=== PATIENT | female | born 1980 | race African-American/Black ===

== ENCOUNTER 2016-10-29 05:49 | Inpatient (IN) | payer BC ==
[2016-10-29] VITALS (25 sets, daily range): BP systolic 125–180; BP diastolic 67–124; PULSE 64–119; RESP 16–22; TEMP 97.4–98.9; O2SAT 99–100
[~2016-10-29] VITALS: Ht 152.4 cm; Wt 57.5 kg
[~2016-10-29 05:49] MED LIST: CIPR500T4 PO; GLUC1000 PO; LISI-360 PO; PROT40TA PO; Z.0.BCPILL PO
[2016-10-29] MEDS ORDERED: TRI-TAB (06:04)
[2016-10-29] MEDS ORDERED: METF500T PO (06:04)
[2016-10-29] MEDS ORDERED: LISI10TA3 PO (06:04)
[2016-10-29] MEDS ORDERED: ONDANSETRON HCL 4 MG/2 ML VIAL ONE ×2 (06:06→17:45)
[2016-10-29] MEDS ORDERED: LORazepam 2 MG/ML VIAL ONE (06:09)
[2016-10-29] MEDS ORDERED: MORPHINE SULFATE 8 MG/ML INJ ONE ×3 (06:12→06:44)
[2016-10-29] MEDS ORDERED: ASPIRIN 325 MG TAB ONE (06:12)
[2016-10-29] MEDS ORDERED: ONDANSETRON HCL 4 MG/2 ML VIAL IV ONE (06:15)
[2016-10-29] MEDS ORDERED: LORazepam 2 MG/ML VIAL IV PUSH ONE (06:15)
[2016-10-29] MEDS ORDERED: SODIUM CHLOR 0.9% 1000 ML INJ 1,000 ML IV ONE ×2 (06:15)
[2016-10-29] MEDS ORDERED: SODIUM CHLORIDE 0.9% FLUSH 10 ML FLUSH IVF PRN (06:15)
[2016-10-29] MEDS ORDERED: HEPARIN SODIUM - IV 10,000 UNITS/10 ML VIAL IV STA (06:16)
[2016-10-29] MEDS ORDERED: ASPIRIN 81 MG CHEW TAB ONE (06:18)
[2016-10-29] MEDS ORDERED: HEPARIN SODIUM - IV 10,000 UNITS/10 ML VIAL ONE ×2 (06:18→06:40)
[2016-10-29 06:23] LABS: I-STAT POTASSIUM 4.1 MMOL/L (3.5-4.9)
[2016-10-29 06:24] LABS: BASOPHIL # 0.1 TH/MM3 (0-0.2); BASOPHIL % 0.6 % (0.0-2.0); EOSINOPHIL % 0.1 % (0.0-4.0); HEMATOCRIT 42.3 % (35.0-46.0); HEMO FLAGS DIFF FINAL; LYMPH % 14.4 % (9.0-44.0); LYMPHOCYTE # 2.2 TH/MM3 (1.0-4.8); MEAN CORPUSCULAR HEMOGLOBIN 28.2 PG (27.0-34.0); MEAN CORPUSCULAR HGB CONC 33.6 % (32.0-36.0); MONO % 1.9 % (0.0-8.0); PLATELET COUNT 401 TH/MM3 (150-450); RED BLOOD COUNT 5.04 MIL/MM3 (4.00-5.30); RED CELL DISTRIBUTION WIDTH 12.8 % (11.6-17.2); WHITE BLOOD COUNT 15.7 TH/MM3 (4.0-11.0)
[2016-10-29] MEDS ORDERED: IOHEXOL 350 MG/ML 50 ML BTL (for Cath Lab) OTHER ONE (06:30)
[2016-10-29] MEDS ORDERED: IOHEXOL 350 MG/ML 100 ML BTL (for Cath Lab) OTHER ONE (06:30)
[2016-10-29] MEDS ORDERED: NITROGLYCERIN-DEXTROSE INJ 250 ML IV SCH (06:30)
--- NOTE | 2016-10-29 06:38 | RADRPT ---
EXAM DATE/TIME: 10/29/2016 06:08 [place] COMPARISON: No previous studies available for comparison. INDICATIONS : Stemi alert MEDICAL HISTORY : Hypertension. Diabetes SURGICAL HISTORY : None. ENCOUNTER: Initial ACUITY: 1 day PAIN SCORE: 10/10 LOCATION: Bilateral chest FINDINGS: The lungs are clear without infiltrate, nodule, or mass. There is no appreciable pleural effusion fo r technique. Heart and mediastinum are unremarkable. CONCLUSION: No acute cardiopulmonary disease. Kasey Shaver MD on October 29, 2016 at 6:36 Board Certified Radiologist. This report was verified electronically.
[2016-10-29] MEDS ORDERED: MIDAZOLAM HCL 2 MG/2 ML VIAL ONE (06:40)
[2016-10-29] MEDS ORDERED: HEPARIN-NS/PF INJ 500 ML ONE (06:40)
[2016-10-29] MEDS ORDERED: NITROGLYCERIN INJ 5 ML ONE (06:40)
[2016-10-29 06:54] LABS: ANION GAP 11 MEQ/L (5-15); AST (GOT) 51 U/L (15-37); BICARBONATE 24.6 MEQ/L (21.0-32.0); BLOOD UREA NITROGEN 11 MG/DL (7-18); CHLORIDE 98 MEQ/L (98-107); GLOMERULAR FILTRATION RATE 94 ML/MIN (>89); MAGNESIUM 1.6 MG/DL (1.5-2.5); SODIUM (NA) 134 MEQ/L (136-145)
[2016-10-29 06:55] LABS: ALT (GPT) 58 U/L (10-53)
[2016-10-29 06:59] LABS: ALKALINE PHOSPHATASE 89 U/L (45-117); TOTAL BILIRUBIN ADULT 0.4 MG/DL (0.2-1.0)
--- NOTE | 2016-10-29 07:16 | PD ---
HPI Chief Complaint: Chest Pain Time Seen by Provider: 06:01 Travel History International Travel<30 days: No Contact w/Intl Traveler<30days: No Traveled to known affect area: No History of Present Illness HPI So 36 year-old woman, history of diabetes and hypertension, presents to the emergency department complaining of left-sided chest pain, rating her left arm and her abdomen starting about 1 AM. Woke her from sleep. Social with nausea and vomiting. Patient states the pain is severe, she's never had it before. She otherwise has been feeling generally well and healthy prior to the onset of these symptoms. She felt well before she went to bed last night. History Past Medical History Narrative Medical Diabetes Hypertension Tetanus Vaccination: Unknown Influenza Vaccination: No LMP: 09/27/16 : 1 Para: 1 Social History Alcohol Use: No Tobacco Use: No Allergies-Medications (Allergen,Severity, Reaction): Coded Allergies: No Known Allergies (Verified , 10/29/16) Reported Meds & Prescriptions Reported Meds & Active Scripts Active Reported Tri-Sprintec (Norgestimate-Ethinyl Estradiol) 0.18/0.215/0.25 Mg-35 Mcg Tab Lisinopril 10 Mg Tab 10 Mg PO DAILY Metformin (Metformin HCl) 500 Mg Tab 500 Mg PO BIDPC With meals Review of Systems Except as stated in HPI: all other systems reviewed are Neg Physical Exam Narrative GENERAL: 36 year-old woman, appears uncomfortable, diaphoretic. SKIN: Diaphoretic. No rash. HEAD: Atraumatic. Normocephalic. EYES: Pupils equal and round. No scleral icterus. No injection or drainage. ENT: No nasal bleeding or discharge. Mucous membranes pink and moist. NECK: Trachea midline. No JVD. CARDIOVASCULAR: Regular rate and rhythm. No murmur appreciated. RESPIRATORY: No accessory muscle use. Clear to auscultation. Breath sounds equal bilaterally. GASTROINTESTINAL: Abdomen soft, non-tender, nondistended. Hepatic and splenic margins not palpable. MUSCULOSKELETAL: Abdomen flat and soft. No significant tenderness. No guarding. NEUROLOGICAL: Awake and alert. No obvious cranial nerve deficits. Motor grossly within normal limits. Normal speech. PSYCHIATRIC: Anxious and tearful. Data Data Last Documented VS Vital Signs Date Time Temp Pulse Resp B/P Pulse Ox O2 Delivery O2 Flow Rate FiO2 10/29/16 06:25 99 22 164/108 100 Nasal Cannula 2 10/29/16 05:53 97.4 Orders Ondansetron Inj (Zofran Inj) (10/29/16 06:06) Electrocardiogram (10/29/16 06:08) Complete Blood Count With Diff (10/29/16 06:08) Comprehensive Metabolic Panel (10/29/16 06:08) D-Dimer (10/29/16 06:08) Magnesium (Mg) (10/29/16 06:08) Prothrombin Time / Inr (Pt) (10/29/16 06:08) Act Partial Throm Time (Ptt) (10/29/16 06:08) Troponin I (10/29/16 06:08) Lipase (10/29/16 06:08) Chest, Single Ap (10/29/16 06:08) Ecg Monitoring (10/29/16 06:08) Bilateral Bp Monitoring (10/29/16 06:08) Iv Access Insert/Monitor (10/29/16 06:08) Oximetry (10/29/16 06:08) Oxygen Administration (10/29/16 06:08) Sodium Chloride 0.9% Flush (Ns Flush) (10/29/16 06:15) Sodium Chlor 0.9% 1000 Ml Inj (Ns 1000 M (10/29/16 06:15) Sodium Chlor 0.9% 1000 Ml Inj (Ns 1000 M (10/29/16 06:15) Ondansetron Inj (Zofran Inj) (10/29/16 06:15) Lorazepam Inj (Ativan Inj) (10/29/16 06:15) Lorazepam Inj (Ativan Inj) (10/29/16 06:09) I-Stat Profile (10/29/16 06:11) I-Stat Creatinine (10/29/16 06:11) Aspirin (Aspirin) (10/29/16 06:12) Morphine Inj (Morphine Inj) (10/29/16 06:12) Aspirin Chew (Aspirin Chew) (10/29/16 06:18) Heparin Inj (Heparin Inj) (10/29/16 06:18) Heparin Inj (Heparin Inj) (10/29/16 06:16) Nitroglycerin-Dextrose Inj (Nitroglyceri (10/29/16 06:30) Cardiac Catheterization (10/29/16 ) Heparin-Ns/Pf Inj (Heparin-Ns/Pf Inj) (10/29/16 06:40) Midazolam Inj (Versed Inj) (10/29/16 06:40) Fentanyl Inj (Fentanyl Inj) (10/29/16 06:40) Heparin Inj (Heparin Inj) (10/29/16 06:40) Nitroglycerin Inj (Nitroglycerin Inj) (10/29/16 06:40) Morphine Inj (Morphine Inj) (10/29/16 06:44) Morphine Inj (Morphine Inj) (10/29/16 06:44) Labs Laboratory Tests Test 10/29/16 06:05 White Blood Count 15.7 TH/MM3 Red Blood Count 5.04 MIL/MM3 Hemoglobin 14.2 GM/DL Bedside Hemoglobin 15.3 G/DL Hematocrit 42.3 % Bedside Hematocrit 45.0 % Mean Corpuscular Volume 84.0 FL Mean Corpuscular Hemoglobin 28.2 PG Mean Corpuscular Hemoglobin 33.6 % Concent Red Cell Distribution Width 12.8 % Platelet Count 401 TH/MM3 Mean Platelet Volume 8.5 FL Neutrophils (%) (Auto) 83.0 % Lymphocytes (%) (Auto) 14.4 % Monocytes (%) (Auto) 1.9 % Eosinophils (%) (Auto) 0.1 % Basophils (%) (Auto) 0.6 % Neutrophils # (Auto) 13.0 TH/MM3 Lymphocytes # (Auto) 2.2 TH/MM3 Monocytes # (Auto) 0.3 TH/MM3 Eosinophils # (Auto) 0.0 TH/MM3 Basophils # (Auto) 0.1 TH/MM3 CBC Comment DIFF FINAL Differential Comment Bedside Sodium 136 MMOL/L Sodium Level 134 MEQ/L Bedside Potassium 4.1 MMOL/L Potassium Level 4.0 MEQ/L Bedside Chloride 100 MMOL/L Chloride Level 98 MEQ/L Carbon Dioxide Level 24.6 MEQ/L Anion Gap 11 MEQ/L Bedside Blood Urea Nitrogen 12 MG/DL Blood Urea Nitrogen 11 MG/DL Creatinine 0.84 MG/DL Bedside Creatinine 0.5 MG/DL Estimat Glomerular Filtration 94 ML/MIN Rate Bedside Glucose 421 MG/DL Random Glucose 392 MG/DL Calcium Level 9.3 MG/DL Magnesium Level 1.6 MG/DL Total Bilirubin 0.4 MG/DL Aspartate Amino Transf 51 U/L (AST/SGOT) Alanine Aminotransferase 58 U/L (ALT/SGPT) Alkaline Phosphatase 89 U/L Troponin I LESS THAN 0.02 NG/ML Total Protein 7.8 GM/DL Albumin 3.3 GM/DL Lipase 94 U/L [facility] Medical Decision Making Medical Screen Exam Complete: Yes Emergency Medical Condition: Yes Interpretation(s) My review of EKG: Large inferolateral ST elevation AR Differential Diagnosis STEMI, dissection, pericarditis, other Narrative Course Medical decision making Is a 36 year-old woman, ill-appearing, presents with abdominal pain, chest pain , left arm pain. EKG shows obvious inferolateral AR. Etiology is not clear. She has risk factors including hypertension diabetes was still very young. She could have some sort of thrombophilia, dissection, or other etiology. Spoke with Dr. Ray, on-call for cardiology. Patient was taken emergently to the [facility]. Critical Care Narrative Aggregate critical care time was 35 minutes. Time to perform other separately billable procedures was not included in the critical care time. My time did not include minutes spent treating any other patients simultaneously or on activities that did not directly contribute to the patient's treatment. The services I provided to this patient were to treat and/or prevent clinically significant deterioration that could result in: , disability, unrecognized AR, increased morbidity. I provided critical care services requiring my management, as noted below: Chart data review, documentation time, medication orders and management, vital sign assessments/reviewing monitor data, ordering and reviewing lab tests, ordering and interpreting/reviewing x-rays and diagnostic studies, care of the patient and discussion of the patient with the admitting physicians. Diagnosis Primary Impression: STEMI (ST elevation myocardial infarction) Cezar Camp MD Oct 29, 2016 07:15
[2016-10-29] MEDS ORDERED: TICAGRELOR 90 MG TAB PO ONE (07:25)
[2016-10-29] MEDS ORDERED: TIROFIBAN BOLUS INJ 100 ML IV ONE (07:28)
[2016-10-29 07:40] LABS: APTT (PATIENT) 20.8 SEC (24.3-30.1); INTERNATIONAL NORMALIZED RATIO 0.9 RATIO
--- NOTE | 2016-10-29 07:46 | CATHPROC ---
[employer] HIS Report Study Information Study Number Admission Scheduled Start Study Start [id number] Oct 29 2016 5:49AM 10/29/2016 Oct 29 2016 6:36AM [facility] Cardiac Catheterization Admit Source Facility Department Emergency department [facility] Physician and Clinical Staff Initial Juanita Lockhart Tunnel Mucker Scarlett Welsh,JONI Tunnel Mucker Tari Prabhakar RN Scrub Julio Cesar Aguirre RCIS(BS) Procedures Performed Procedure Location (Site) Vessel Name Angiogram LV LV Ventricle Coronary Angiograms LCA Left Coronary Coronary Angiograms RCA Right Coronary L Heart Cath PTCA RCA Dist Right Coronary Stent RCA Dist Right Coronary Wire insertion Fem Art (right) Femoral Art Equipment Time Press Technician Description Size Mfg Part Number Used/Scraped CATHETER, BIFURCATED 07:12 ANGIO-DYNAMICS FR 5 [id number] Used INFUSION LXSN TRANSDUCER, TRFlypeepsAVE [id number] 06:46 SCANLON JEWELL * Used W/STOCKCOCK *[id number] *[id number] *[id number] [id number] *[id number] [id number] *[id number] *[id number] 07:29 DAIG/[facility]. MARIANNE MEDICAL ANGIOSEAL, FR6 VIP FR 6 Used *[id number] 06:46 MEDLINE IND[employer] PACK, CCL CUSTOM * Used *[id number] 06:46 [employer] PACER PEN, SKIN DUAL W/ RULER * Used *[id number] 07:13 MEDTRONIC BALLOON, 2.5 X 10MM EUPHORA 10MM Used *[id number] EXPORTAP 07:03 [employer] CATHETER, EXPORT ASPIRATON Used *[id number] 07:18 MEDTRONIC STENT, 3.0 12 INTEGRITY 3.0 12 Used *[id number] 07:13 [employer]IC MEDICAL 30 RAMON INDEFLATOR Used *[id number] 07:04 [employer] MEDICAL SHEATH, FR6.5 PRELUDE 11CM FR 6.5 038ACT Used *[id number] 06:46 [employer] WIRE, 3MMJ .035 180CM 180CM Used *[id number] PROBE COVER, STERILE [id number] 06:46 [employer] * Used ULTRASOUND W/ GEL *[id number] 06:46 NAMIC MANIFOLD, 4 PORT * Used *[id number] 06:48 NAMIC TUBING, HIGH PRESSURE 48" 48" Used *[id number] 06:46 NAMIC TUBING, HIGH PRESSURE 48" 48" Used *[id number] 06:46 [employer]COMED OMNIPAQUE, 350 MG, 150ML 150ML [id number] Used 07:23 NYCOMED OMNIPAQUE, 350 MG, 50ML 50ML [id number] Used [id number] 06:46 RAMIREZ MEDICAL BLANKET,WARM AIR CCL * Used *[id number] 06:46 TERUMO MEDICAL SHEATH, FR5 TERUMO (10CM) FR 5 [id number] Used Equipment Model, Serial, Lot Number and Expiration Data Description Model Number Serial Number Lot Number Expiration Date STENT, 3.0 12 INTEGRITY [id number] 06-23-2017 History: Allergies Allergy Reaction No Known Allergies History: Risk Factors Family History of Hypertension Dyslipidemia Previous AK Previous Heart Failure Premature CAD No No No No No Prior Valve Prior PCI Prior CABG Surgery No No No Cerebrovascular Peripheral Artery Chronic Lung On Dialysis Diabetes Disease Disease Disease No No No No No History: Symptoms/Diagnosis Selection Items Angina-unstable History: Stress Tests Stress or Imaging Studies Performed No History: Other Current Smoker No Labs Hgb (g/dl) Hct (%) RBC (MIL/MM3) WBC (l/cumm) Platelets (thousands) 12.00-18.00 37.00-55.00 4.80-6.20 4.80-10.80 140.00-450.00 14.2 42.3 5 15.7 401 Glucose (mg/dl) BUN (mg/dl) Creatinine (mg/dl) BUN:Creatinine (1:x) 60.00-110.00 8.00-20.00 0.10-9.00 10.00-20.00 421 11 0.8 13.8 Na (meq/l) K (meq/l) Cl (meq/l) CO2 (mmol/L) Ca (mg/dl) 138.00-146.00 3.80-5.10 101.00-111.00 23.00-30.00 9.00-10.50 136 4 98 24.6 9.3 Medication Medication Total Dose (Bolus/Oral) Medication Total Dosage/Unit 1% XYLOCAINE 20 mL AGGRASTAT BOLUS 28 meq/kg BRILINTA 180 mg FENTANYL 100 mcg HEPARIN 6400 units MORPHINE 4 mg NTG (IC) 200 mcg VERSED 2 mg Medications (Bolus/Oral) Medication Time Given Dosage/Unit Administered By Reason HEPARIN 10/29/2016 6:30:58 AM 3400 units Patient arrived on 3400 units HEPARIN via Peripheral IV. given in ER MORPHINE 10/29/2016 6:44:35 AM 4 mg Juanita So Patient arrived on 4 mg MORPHINE given by Juanita So in Right Antecubital via Peripheral IV. Ord ered by Juanita So. VERSED 10/29/2016 6:55:46 AM 1 mg Tari Prabhakar 1 mg VERSED given in lab by Tari Prabhakar RN in Right Antecubital via Peripheral IV. FENTANYL 10/29/2016 6:56:47 AM 50 mcg Tari Prabhakar 50 mcg FENTANYL given in lab by Tari Prabhakar RN in Right Antecubital via Peripheral IV. Ordered by Juanita So. 1% XYLOCAINE 10/29/2016 6:57:09 AM 20 mL Tari Prabhakar Patient arrived on 20 mL 1% XYLOCAINE given by Tari Prabhakar RN via Subcutaneous. Ordered by Juanita Jackson. HEPARIN 10/29/2016 7:01:42 AM 3000 units Tari Prabhakar 3000 units HEPARIN given in lab by Tari Prabhakar RN in Right Antecubital via Peripheral IV. NTG (IC) 10/29/2016 7:14:56 AM 200 mcg Julio Cesar Aguirre 200 mcg NTG (IC) given in lab by Julio Cesar Aguirre RCIS(BS) in Right Groin via Intra-coronary. VERSED 10/29/2016 7:25:34 AM 1 mg Tari Prabhakar 1 mg VERSED given in lab by Tari Prabhakar RN in Right Antecubital via Peripheral IV. FENTANYL 10/29/2016 7:26:00 AM 50 mcg Tari Prabhakar 50 mcg FENTANYL given in lab by Tari Prabhakar RN in Right Antecubital via Peripheral IV. AGGRASTAT BOLUS 10/29/2016 7:29:50 AM 28 meq/kg Tari Prabhakar 28 meq/kg AGGRASTAT BOLUS given in lab by Tari Prabhakar RN in Right Antecubital via Peripheral IV. Amount given = 1576.4 meq. Ordered by Juanita So. BRILINTA 10/29/2016 7:43:41 AM 180 mg Tari Prabhakar 180 mg BRILINTA given in lab by Tari Prabhakar RN via Oral. Ordered by Juanita So. Medication (Drip) Medication Time Given Dosage/Unit Concentration/Unit Diluent (ml) Solution INSULIN (HUMAN) 10/29/2016 6:55:48 AM 10 units Patient arrived on 10 units INSULIN (HUMAN) given by Scarlett Welsh RN in Right Hand via Periphera l IV. Ordered by Juanita So. IV Bolus 10/29/2016 7:00:17 AM 500 mL (Bolus) 1000 NaCl .9 500 mL (Bolus) IV Bolus given in lab by Scarlett Welsh RN in Right Antecubital via Peripheral IV. Using NaCl .9. IV Solutions 10/29/2016 6:39:11 AM 0 mL (IV) 500 NaCl .9 Patient arrived on IV Solutions given by Juanita So in Right Antecubital via Peripheral IV. Pump /Drip Flow = 20 ml/hr using NaCl .9. Ordered by Juanita So. NITROGLYCERIN DRIP 10/29/2016 6:38:38 AM 40 mcg/min 50 mg 250 D5W Patient arrived on 40 mcg/min NITROGLYCERIN DRIP given by Juanita So in Left Antecubital via Per ipheral IV. Pump/Drip Flow = 12 ml/hr using D5W with a concentration of 50 mg in 250 ml. Ordered by Juanita So. NITROGLYCERIN DRIP 10/29/2016 6:41:45 AM 80 mcg/min 50 mg 250 D5W Patient arrived on 80 mcg/min NITROGLYCERIN DRIP given by Juanita So in Left Antecubital via Per ipheral IV. Pump/Drip Flow = 24 ml/hr using D5W with a concentration of 50 mg in 250 ml. Ordered by Juanita So. Initial Case Assessment Cardiovascular HR Rhythm NIBP Chest Pain 100 stemi 181/123 9 Edema Present Skin color Skin None Normal Warm Dry Circulatory - Right Pulses Dorsalis Pedis Femoral 3 3 Scale (0,1,2,3,4,d) Circulatory - Left Pulses Dorsalis Pedis Femoral 3 3 Scale (0,1,2,3,4,d) Neurological State Oriented to time-place- Alert Moves all extremities person Respiration - General Respiration Rate SpO2 (%) O2 (lpm) (B/min) 18 100 2 Final Case Assessment Cardiovascular HR Rhythm NIBP Chest Pain 118 stemi 154/105 9 Edema Present Skin color Skin None Normal Warm Dry Circulatory - Right Pulses Dorsalis Pedis Femoral 3 3 Scale (0,1,2,3,4,d) Circulatory - Left Pulses Dorsalis Pedis Femoral 3 3 Scale (0,1,2,3,4,d) Neurological State Oriented to time-place- Alert Moves all extremities person Respiration - General Respiration Rate SpO2 (%) O2 (lpm) (B/min) 13 100 2 Chronological Log Time Study Chronological Log 6:30:53 Patient arrived via Bed. 6:30:58 Patient arrived on 3400 units HEPARIN via Peripheral IV. given in ER Vitals capture started with the following parameters, Patient=Adult, Interval=5 min, Initial Pr tzyatw=978 mmHg, 6:35:46 Deflation Rate=5 mmHg 6:35:58 Patient Name, D.O.B, / Armband Verified By R.N. 6:36:00 Consent signed by the physician and the patient and verified by the [facility] staff. 6:36:01 Pre-op and post- op instructions given; patient acknowledges understanding of instructions. 6:36:45 IX=163 bpm, IMNY=752/123 mmhg, XbA7=980.0 %, Resp=22 B/min, Grove=2 6:37:26 Verbal Stimulation=2 Physical Stimulation=2 Airway=2 Respiration=2 TOTAL=8. (0=absent, 1=li mited, 2=present) 6:37:38 Presedation assessment performed by [facility] RN. 6:38:22 A # 20 IV was noted in the Antecubital (left). Grade = 0 6:38:31 A # 20 IV was noted in the Antecubital (right). Grade = 0 Patient arrived on 40 mcg/min NITROGLYCERIN DRIP given by Juanita So in Left Antecubital v ia Peripheral IV. 6:38:38 Pump/Drip Flow = 12 ml/hr using D5W with a concentration of 50 mg in 250 ml. Ordered by Juanita So. Patient arrived on IV Solutions given by Juanita So in Right Antecubital via Peripheral IV . Pump/Drip Flow = 20 6:39:11 ml/hr using NaCl .9. Ordered by Juanita So. 6:39:23 History and physical on the chart or being dictated. Assessment: Initial Case, ZI=626 BPM, Rhythm=stemi, SIQE=511/123 mmhg, Chest Pain=9, Edema=None, Color=Normal, Skin = Warm, Dry Right Pulses: Hola Ped=3, Femoral=3 6:39:26 Left Pulses: Hola Ped=3, Femoral=3 Neurological: State=Alert, Ox3, FERNANDES Respiration: Resp=18 B/min, FfD7=537 %, O2=2 lpm 6:39:58 Bilateral groins prepped with 2% chlorhexidine, and with a 3 min. waiting time. 6:41:09 JB=192 bpm, DAZZ=317/111 mmhg, ErW2=704.0 %, Resp=20 B/min, Grove=2 Patient arrived on 80 mcg/min NITROGLYCERIN DRIP given by Juanita So in Left Antecubital vi a Peripheral IV. 6:41:45 Pump/Drip Flow = 24 ml/hr using D5W with a concentration of 50 mg in 250 ml. Ordered by Juanita So. 6:44:24 Reference ECG taken Patient arrived on 4 mg MORPHINE given by Juanita So in Right Antecubital via Peripheral IV . Ordered by 6:44:35 Juanita So. 6:44:47 Pressure channel 1 zeroed. 6:46:08 VU=314 bpm, KMOM=845/106 mmhg, EsO8=991.0 %, Resp=22 B/min, Grove=2 6:47:16 MD arrived. 6:51:07 ZH=239 bpm, SBXI=801/96 mmhg, OaE4=750.0 %, Resp=19 B/min, Grove=2 6:55:04 275 blood glucose 6:55:20 BMG 375 6:55:46 1 mg VERSED given in lab by Tari Prabhakar, JONI in Right Antecubital via Peripheral IV. Patient arrived on 10 units INSULIN (HUMAN) given by Scarlett Welsh RN in Right Hand via Kayla pheral IV. Ordered 6:55:48 by Juanita So. 6:56:04 DV=839 bpm, UWWJ=269/106 mmhg, LoH7=776.0 %, Resp=26 B/min, Pain=6, Jr=10, Grove=2 Time Out. Correct patient, correct procedure,correct physician, ,power injector loaded or not lo aded with contrast with 6:56:28 surgical team present. Time Out Concurred by MD, individual staff and CLOTHING BUSHELER in procedure 6:56:31 Case Start 50 mcg FENTANYL given in lab by Tari Prabhakar RN in Right Antecubital via Peripheral IV. Order ed by Judah, 6:56:47 Juanita. 6:57:09 Patient arrived on 20 mL 1% XYLOCAINE given by Tari Prabhakar RN via Subcutaneous. Ordered by Juanita So. 6:57:11 Access site was Right Femoral Artery. 6:57:50 Activated Clotting Time Drawn A AR MOD INFINITI CATHETER FR 5 was advanced over a wire. OMNIPAQUE, 350 MG, 150ML 150ML was use d for 6:58:57 injections. Recorded Pressure: LV, ZN=102, Condition=Condition 1 6:59:18 (Left Ventricle) LV 130/10/11 7:00:05 The RCA was injected and visualized at various angles. OMNIPAQUE, 350 MG, 150ML 150ML used. 7:00:17 500 mL (Bolus) IV Bolus given in lab by Scarlett Welsh RN in Right Antecubital via Periph eral IV. Using NaCl .9. 7:00:35 Catheter was removed 7:01:09 QC=997 bpm, SQIO=279/88 mmhg, EhH5=421.0 %, Resp=14 B/min, Pain=6, Jr=10, Grove=2 A JL 4.0 INFINITI CATHETER FR 5 was advanced over a wire. OMNIPAQUE, 350 MG, 150ML 150ML was use d for 7::14 injections. 7:01:25 ACT (Normal Range 90-180) = 186 7:01:42 3000 units HEPARIN given in lab by Tari Prabhakar, JONI in Right Antecubital via Peripheral IV . 7:02:29 The LCA was injected and visualized at various angles. OMNIPAQUE, 350 MG, 150ML 150ML used. 7:03:14 Catheter was removed A SHEATH, FR6.5 PRELUDE 11CM FR 6.5 was exchanged in the Fem Art (right). This was necessary in order for 7:03:37 catheter support. 7:04:42 A AR 1 GUIDE CATHETER FR 6 was advanced over a wire. OMNIPAQUE, 350 MG, 150ML 150ML was used for injections. Recorded Pressure: Ao, PY=141, Condition=Condition 1 7:04:51 (Aorta) Ao 124/90/107 7:06:04 TQ=852 bpm, HJGA=985/90 mmhg, WiG2=548.0 %, Resp=14 B/min 7:07:03 A WIRE, ATW MARKER 195CM 195CM was inserted via Fem Art (right). 7:08:23 Interventional wire has crossed the lesion 7:08:32 Aspiration catheter inserted 7:08:33 Aspiration in progress. REPERFUSION 7:10:14 ASPIRATION Catheter was removed 7:10:32 Activated Clotting Time Drawn 7:11:05 FK=433 bpm, RCQX=743/81 mmhg, SpO2=99.0 %, Resp=15 B/min, Pain=6, Jr=10, Grove=2 7:12:49 A BALLOON, 2.5 X 10MM EUPHORA 10MM was inserted over WIRE, ATW MARKER 195CM 195CM via the RC A Dist. A BALLOON, 2.5 X 10MM EUPHORA 10MM over a WIRE, ATW MARKER 195CM 195CM in the RCA Dist was infla robert using 7:13:04 a 30 RAMON INDEFLATOR at 14 ramon for 35 sec. 7:14:31 Balloon Removed. 7:14:56 200 mcg NTG (IC) given in lab by Julio Cesar Aguirre RCIS(BARB) in Right Groin via Intra-coronary. 7:15:35 ACT (Normal Range 90-180) = 276 7:16:04 EL=552 bpm, NWIX=176/69 mmhg, AnV7=448.0 %, Resp=19 B/min, Pain=6, Jr=10, Grove=2 An STENT, 3.0 12 INTEGRITY 3.0 12 Bare Metal Stent was inserted through a AR 1 GUIDE CATHETER FR 6 over a 7:18:18 WIRE, ATW MARKER 195CM 195CM. A STENT, 3.0 12 INTEGRITY 3.0 12 was deployed using a 30 RAMON INDEFLATOR at 10 atmospheres for 25 seconds in 7:18:55 the RCA Dist. 7:20:15 Re-inflated the stent balloon in the RCA Dist to 14 RAMON for 20 seconds. 7:20:30 Delivery device removed 7:21:03 ZV=269 bpm, ZAVC=648/80 mmhg, QjQ5=265.0 %, Resp=16 B/min, Pain=6, Jr=10, Grove=2 7:21:50 Wire removed 7:21:53 Catheter was removed A JL 4.0 INFINITI CATHETER FR 5 was advanced over a wire. OMNIPAQUE, 350 MG, 150ML 150ML was use d for 7:22:32 injections. Recorded Pressure: LV, WL=524, Condition=Condition 1 7:23:28 (Left Ventricle) LV 145/7/17 7:24:39 The LV was injected at 10 cc/sec for a total of 30. OMNIPAQUE, 350 MG, 50ML 50ML used. Recorded Pressure: LV, Ao, GQ=613, Condition=Condition 1 7:25:23 (Left Ventricle) LV 139/5/5, (Aorta) Ao 133/76/110 7:25:34 1 mg VERSED given in lab by Tari Prabhakar RN in Right Antecubital via Peripheral IV. 7:26:00 50 mcg FENTANYL given in lab by Tari Prabhakar RN in Right Antecubital via Peripheral IV. 7:26:02 XK=930 bpm, OOYE=312/96 mmhg, YkY4=236.0 %, Resp=17 B/min, Pain=6, Jr=10, Grove=2 7:26:54 An injection in the Fem Art (right) was made through the SHEATH, FR6.5 PRELUDE 11CM FR 6.5. 7:28:10 Catheter(s) removed without difficulty 7:28:26 ANGIOSEAL, FR6 VIP FR 6 placement in the Fem Art (right) 7:28:41 Case End 28 meq/kg AGGRASTAT BOLUS given in lab by Tari Prabhakar, JONI in Right Antecubital via Peripheral IV. Amount given 7:29:50 = 1576.4 meq. Ordered by Juanita So. 7:31:00 Bedside Report will be given. 7:31:05 A Left Heart Cath was performed. 7:31:08 KO=596 bpm, JLPQ=147/98 mmhg, ZhU0=292.0 %, Resp=13 B/min, Pain=6, Jr=10, Grove=2 7:31:10 No case complications noted. 7:31:15 Sterile dressing applied to site 7:36:11 KV=781 bpm, IUBN=046/105 mmhg, AeJ0=775.0 %, Resp=13 B/min, Pain=6, Jr=10, Grove=2 Assessment: Final Case, LC=405 BPM, Rhythm=stemi, GZJH=302/105 mmhg, Chest Pain=9, Edema=None, Color=Normal, Skin = Warm, Dry Right Pulses: Hola Ped=3, Femoral=3 7:38:02 Left Pulses: Hola Ped=3, Femoral=3 Neurological: State=Alert, Ox3, FERNANDES Respiration: Resp=13 B/min, EjI7=473 %, O2=2 lpm 7:38:23 Vitals capture stopped. 7:43:41 180 mg BRILINTA given in lab by Tari Prabhakar, JONI via Oral. Ordered by Juanita So. 7:44:40 Patient moved to [facility] End Study - Contrast Media Used In Study Contrast Total Opened (mL) Total Used (mL) Total Wasted (mL) Omnipaque 130 130 0 End Study - Maximum Contrast Load Max Contrast Load (mL) 352.0 End Study - Radiation Exposure Fluoro Time (minutes) 6.3 End Study - Patient Disposition Complications Transferred To Interventional Outcome No Telemetry Bed successful
[2016-10-29] MEDS ORDERED: ACETAMINOPHEN 325 MG TAB PO PRN (08:00)
[2016-10-29] MEDS ORDERED: TEMAZEPAM 15 MG CAP PO PRN (08:00)
[2016-10-29] MEDS ORDERED: SODIUM CHLOR 0.9% 1000 ML INJ 1,000 ML IV SCH (08:00)
[2016-10-29] MEDS ORDERED: MISC INFORMATION XX ONE (08:00)
[2016-10-29] MEDS ORDERED: ASPIRIN 81 MG CHEW TAB CHEW ONE (08:15)
[2016-10-29] MEDS: ASPIRIN 81 MG CHEW TAB PO SCH (08:16)
[2016-10-29] MEDS: LISINOPRIL 5 MG TAB PO SCH (08:16)
[2016-10-29] MEDS: CARVEDILOL 6.25 MG TAB PO SCH ×2 (08:16→21:38)
[2016-10-29 12:27] LABS: AUTOMATED NEUTROPHIL # 11.9 TH/MM3 (1.8-7.7); BASOPHIL # 0.1 TH/MM3 (0-0.2); BASOPHIL % 0.4 % (0.0-2.0); HEMATOCRIT 36.9 % (35.0-46.0); HEMO FLAGS DIFF FINAL; LYMPH % 7.1 % (9.0-44.0); LYMPHOCYTE # 0.9 TH/MM3 (1.0-4.8); MEAN CELL VOLUME 85.2 FL (80.0-100.0); MEAN CORPUSCULAR HEMOGLOBIN 27.9 PG (27.0-34.0); MEAN CORPUSCULAR HGB CONC 32.8 % (32.0-36.0); MONO % 1.3 % (0.0-8.0); NEUT % 91.2 % (16.0-70.0); PLATELET COUNT 369 TH/MM3 (150-450); RED BLOOD COUNT 4.33 MIL/MM3 (4.00-5.30); RED CELL DISTRIBUTION WIDTH 12.9 % (11.6-17.2)
[2016-10-29] MEDS ORDERED: GLUCAGON 1 MG/ML VIAL OTHER PRN (14:45)
[2016-10-29] MEDS ORDERED: LABETALOL HCL 100 MG/20 ML VIAL IV PUSH PRN (14:45)
[2016-10-29] MEDS ORDERED: MORPHINE SULFATE 4 MG/ML INJ IV PUSH ONE (14:45)
[2016-10-29] MEDS ORDERED: INSULIN DETEMIR 100 UNITS/ML VIAL SQ SCH (14:45)
[2016-10-29] MEDS ORDERED: DEXTROSE 50% IN WATER 50 ML VIAL(D50) IV PRN (14:45)
[2016-10-29] MEDS ORDERED: MORPHINE SULFATE 4 MG/ML INJ IV PUSH PRN (14:45)
[2016-10-29] MEDS ORDERED: oxyCODONE/ACETAMINOPHEN 5 MG/325 MG TAB PO PRN ×2 (14:45)
[2016-10-29] MEDS: INSULIN ASPART SUPPLEMENTAL SCALE SQ SCH ×2 (16:00→21:48)
--- NOTE | 2016-10-29 17:21 | EKG ---
Date Performed: 10/29/2016 Time Performed: 06:10:20 PTAGE: 36 years EKG: Sinus rhythm ST ELEVATION, CONSIDER LATERAL INJURY Inferior lateral ST elevation with ST depression in the leann septal Leads, consistant with infero lateral and posterior injury pattern. ACUTE OK NO PREVIOUS TRACING DOCTOR: Royal Raza Interpretating Date/Time 10/29/2016 17:19:51
[2016-10-29] MEDS ORDERED: ONDANSETRON HCL 4 MG/2 ML VIAL IV PUSH PRN (20:45)
--- NOTE | 2016-10-29 20:54 | PD.CONS ---
HPI Service [facility] Hospitalists Consult Requested By Dr So Reason for Consult STEMI, Uncontrolled diabetes, htn Primary Care Physician Non-Staff Diagnoses: History of Present Illness Cystoscopy 36-year-old female with past medical history of diabetes mellitus type 2, hypertension who presents to [facility] complaining of chest pain radiating to the left arm which started about 1 AM. The patient states that her pain was very severe, 8/10 in intensity that initially started on the chest and is described as aching which then radiated to the left arm, associated with several episodes of nausea and vomiting. Patient denies shortness of breath, palpitations, cough. Patient states that before the chest pain she had abdominal pain. Patient is currently complaining of chest pain radiating to the left arm and tingling of the fingers. Review of Systems As per history of present illness, other systems reviewed them in negative Past Family Social History Allergies: Coded Allergies: No Known Allergies (Verified , 10/29/16) Past Medical History Diabetes mellitus type 2, hypertension Past Surgical History 1, alma delia hdez in 2004 Reported Medications Tri-Sprintec (Norgestimate-Ethinyl Estradiol) 0.18/0.215/0.25 Mg-35 Mcg Tab Lisinopril 10 Mg Tab 10 Mg PO DAILY Metformin (Metformin HCl) 500 Mg Tab 500 Mg PO BIDPC With meals Active Ordered Medications Current Medications Medications (Trade) Dose Ordered Sig/Delisa Route Start Time Stop Time Status Last Admin Sodium Chloride 2 ml 2 ml UNSCH PRN IVF 10/29/16 06:15 (Nitroglycerin-Dextrose Inj) 250 ml @ 0 mls/hr TITRATE IV 10/29/16 06:30 10/29/16 07:02 (Restoril) 15 mg HS PRN PO 10/29/16 08:00 (Aspirin Chew) 81 mg DAILY PO 10/29/16 09:00 10/29/16 08:16 (Brilinta) 90 mg BID PO 10/30/16 09:00 (Coreg) 6.25 mg BID PO 10/29/16 09:00 10/29/16 08:16 (Prinivil) 5 mg DAILY PO 10/29/16 09:00 10/29/16 08:16 (Lipitor) 40 mg HS PO 10/29/16 21:00 (D50w (Vial) Inj) 50 ml UNSCH PRN IV 10/29/16 14:45 (Glucagon Inj) 1 mg UNSCH PRN OTHER 10/29/16 14:45 (Levemir Inj) 5 units Q12HR SQ 10/29/16 14:45 10/29/16 14:45 (Percocet 5-325 Mg) 1 tab Q4H PRN PO 10/29/16 14:45 (Percocet 5-325 Mg) 2 tab Q4H PRN PO 10/29/16 14:45 (Trandate Inj) 10 mg Q20M PRN IV PUSH 10/29/16 14:45 (Morphine Inj) 2 mg Q3H PRN IV PUSH 10/29/16 14:45 Family History The patient's family history is positive for hypertension, lupus and diabetes in the patient's mother. There is also history of as I'm as dementia Social History She denies smoking, and psychosocially. Denies the use of illicit drugs Physical Exam Vital Signs Vital Signs Date Time Temp Pulse Resp B/P Pulse Ox O2 Delivery O2 Flow Rate FiO2 10/29/16 18:01 96 10/29/16 17:01 100 10/29/16 16:00 92 10/29/16 15:15 18 10/29/16 15:15 18 10/29/16 15:01 98.9 99 18 146/96 100 10/29/16 15:00 100 10/29/16 14:00 98 10/29/16 13:00 100 10/29/16 12:01 106 10/29/16 11:01 97.6 110 18 148/98 100 10/29/16 11:00 104 10/29/16 10:00 118 10/29/16 09:00 112 10/29/16 08:30 97.6 116 18 154/114 100 10/29/16 08:00 114 10/29/16 06:25 99 22 164/108 100 Nasal Cannula 2 10/29/16 06:15 100 2.00 10/29/16 06:14 64 22 144/67 100 Nasal Cannula 2 125/82 10/29/16 06:11 100 Nasal Cannula 2 10/29/16 06:11 22 100 Nasal Cannula 2 10/29/16 05:53 97.4 119 20 180/124 100 Room Air Physical Exam GENERAL: This is a well-nourished, well-developed patient, in no apparent distress. SKIN: No rashes, ecchymoses or lesions. Cool and dry. HEAD: Atraumatic. Normocephalic. No temporal or scalp tenderness. EYES: Pupils equal round and reactive. Extraocular motions intact. No scleral icterus. No injection or drainage. ENT: Nose without bleeding, purulent drainage or septal hematoma. Throat without erythema, tonsillar hypertrophy or exudate. Uvula midline. Airway patent. NECK: Trachea midline. No JVD or lymphadenopathy. Supple, nontender, no meningeal signs. CARDIOVASCULAR: Regular rate and rhythm with a 2/6 systolic murmur. No rubs or gallops auscultated. RESPIRATORY: Clear to auscultation. Breath sounds equal bilaterally. No wheezes , rales, or rhonchi. GASTROINTESTINAL: Abdomen soft, non-tender, nondistended. No hepato-splenomegaly , or palpable masses. No guarding. MUSCULOSKELETAL: Extremities without clubbing, cyanosis, or edema. No joint tenderness, effusion, or edema noted. No calf tenderness. Negative Homans sign bilaterally. NEUROLOGICAL: Awake and alert. Cranial nerves II through XII intact. Motor and sensory grossly within normal limits. Five out of 5 muscle strength in all muscle groups. Normal speech. Laboratory Laboratory Tests Test 10/29/16 10/29/16 06:05 11:55 White Blood Count 15.7 13.0 Red Blood Count 5.04 4.33 Hemoglobin 14.2 12.1 Bedside Hemoglobin 15.3 Hematocrit 42.3 36.9 Bedside Hematocrit 45.0 Mean Corpuscular Volume 84.0 85.2 Mean Corpuscular Hemoglobin 28.2 27.9 Mean Corpuscular Hemoglobin 33.6 32.8 Concent Red Cell Distribution Width 12.8 12.9 Platelet Count 401 369 Mean Platelet Volume 8.5 8.4 Neutrophils (%) (Auto) 83.0 91.2 Lymphocytes (%) (Auto) 14.4 7.1 Monocytes (%) (Auto) 1.9 1.3 Eosinophils (%) (Auto) 0.1 0.0 Basophils (%) (Auto) 0.6 0.4 Neutrophils # (Auto) 13.0 11.9 Lymphocytes # (Auto) 2.2 0.9 Monocytes # (Auto) 0.3 0.2 Eosinophils # (Auto) 0.0 0.0 Basophils # (Auto) 0.1 0.1 CBC Comment DIFF FINAL DIFF FINAL Differential Comment Prothrombin Time 10.0 Prothromb Time International 0.9 Ratio Activated Partial 20.8 Thromboplast Time D-Dimer Quantitative (PE/DVT) 12.55 Bedside Sodium 136 Sodium Level 134 Bedside Potassium 4.1 Potassium Level 4.0 Bedside Chloride 100 Chloride Level 98 Carbon Dioxide Level 24.6 Anion Gap 11 Bedside Blood Urea Nitrogen 12 Blood Urea Nitrogen 11 Creatinine 0.84 Bedside Creatinine 0.5 Estimat Glomerular Filtration 94 Rate Bedside Glucose 421 Random Glucose 392 Calcium Level 9.3 Magnesium Level 1.6 Total Bilirubin 0.4 Aspartate Amino Transf 51 (AST/SGOT) Alanine Aminotransferase 58 (ALT/SGPT) Alkaline Phosphatase 89 Troponin I LESS THAN 0.02 Total Protein 7.8 Albumin 3.3 Lipase 94 Result Diagram: 10/29/16 1155 10/29/16 0605 Imaging Last Impressions Chest X-Ray 10/29/16 0608 Signed Impressions: Service Date/Time: , October 29, 2016 06:08 - CONCLUSION: No acute cardiopulmonary disease. Kasey Shaver MD Reviewed by me Assessment and Plan Problem List: (1) STEMI (ST elevation myocardial infarction) ICD Code: I21.3 Status: Acute Plan: KG reviewed by me showed ST elevations in leads V4 V5 V6, 2, 3 and aVF, ST depressions on V1 and V2 Repeat EKG also reviewed by me obtained at 2 PM after catheterization shows resolved ST elevations or depressions and normal sinus rhythm. Patient underwent emergent catheterization Continue management as per cardiology. Continue Ticagrelor, atorvastatin, aspirin 81 mg, beta aissatou, RODRI inhibitor Follow-up cardiogenic recommendations. Patient still complaining of chest pain radiating to the left arm. We'll order stat EKG. I will place on morphine as needed for chest pain. Check lipid profile if not previously done. (2) Type 2 diabetes mellitus ICD Code: E11.9 Status: Chronic Plan: Patient has severe exacerbation of diabetes, with very elevated blood sugars. I will start the patient on insulin Levemir 5 units subcutaneous twice a day and will place on SSI with insulin NovoLog and monitor Accu-Cheks. We'll check hemoglobin A1c (3) Abdominal pain ICD Code: R10.9 Status: Acute Plan: Since that she has had some right lower quadrant pain. Upon review of records the patient has had previous episode of right lower quadrant as it with nausea and vomiting due to enteritis. Patient had a colonoscopy and endoscopy on 10/07/15 which showed gastritis and normal colon. Biopsy obtained from the stomach was normal. Continue to monitor abdominal pain pain persists a CT scan of abdomen and pelvis might be needed once the patient is more stable from the cardio vascular standpoint. (4) Hypertension ICD Code: I10 Status: Chronic Plan: Blood pressure seems to be slightly elevated, especially the diastolic blood pressure. Continue current antihypertensive medications and follow-up cartilage recommendations. (5) Nausea & vomiting ICD Code: R11.2 Status: Acute Plan: Likely associated to STEMI. I will Rx IV Zofran. (6) SIRS (systemic inflammatory response syndrome) ICD Code: R65.10 Status: Acute Plan: Patient meets SIRS criteria with leukocytosis and tachycardia. There is no fever. Continue to monitor vital signs. Could possibly be related to another episode of enteritis. Will order CT abdomen and pelvis with IV contrast if pain persists. (7) Transaminitis ICD Code: R74.0 Status: Acute Plan: LFTs are mildly elevated at 51 for AST and 58 for ALT, total bilirubin is normal. I will check hepatitis profile and continue to monitor LFTs. If LFTs continue to be elevated then a liver ultrasound would be warranted. Assessment and Plan GI prophylaxis: We'll start on PPI. DVT prophylaxis: Currently on Brilinta Code Status Full code Discussed Condition With Patient, RN Problem Qualifiers (1) STEMI (ST elevation myocardial infarction): Qualified Code: I21.3 - ST elevation myocardial infarction (STEMI), unspecified artery (2) Type 2 diabetes mellitus: Qualified Code: E11.9 - Type 2 diabetes mellitus without complication, without long-term current use of insulin (3) Abdominal pain: Qualified Code: R10.31 - Right lower quadrant abdominal pain (4) Hypertension: Qualified Code: I10 - Essential hypertension Andrew Burr MD Oct 29, 2016 20:54
[2016-10-29] MEDS ORDERED: ATORVASTATIN 40 MG TAB PO SCH (21:00)
[2016-10-29] MEDS: INSULIN DETEMIR 100 UNITS/ML VIAL SQ SCH (21:47)
[2016-10-30] VITALS (15 sets, daily range): BP systolic 133–150; BP diastolic 96–101; PULSE 80–110; RESP 16–18; TEMP 97.6–98.7; O2SAT 100
[2016-10-30 07:20] LABS: AUTOMATED NEUTROPHIL # 6.1 TH/MM3 (1.8-7.7); BASOPHIL % 0.4 % (0.0-2.0); EOSINOPHIL # 0.2 TH/MM3 (0-0.4); EOSINOPHIL % 2.2 % (0.0-4.0); HEMATOCRIT 33.1 % (35.0-46.0); HEMO FLAGS DIFF FINAL; LYMPH % 32.3 % (9.0-44.0); LYMPHOCYTE # 3.3 TH/MM3 (1.0-4.8); MEAN CELL VOLUME 85.2 FL (80.0-100.0); MEAN CORPUSCULAR HEMOGLOBIN 27.9 PG (27.0-34.0); MEAN CORPUSCULAR HGB CONC 32.7 % (32.0-36.0); MONO % 4.6 % (0.0-8.0); NEUT % 60.5 % (16.0-70.0); PLATELET COUNT 324 TH/MM3 (150-450); RED BLOOD COUNT 3.88 MIL/MM3 (4.00-5.30); RED CELL DISTRIBUTION WIDTH 12.9 % (11.6-17.2); WHITE BLOOD COUNT 10.1 TH/MM3 (4.0-11.0)
[2016-10-30] MEDS: INSULIN ASPART SUPPLEMENTAL SCALE SQ SCH (07:28)
[2016-10-30 07:50] LABS: ANION GAP 10 MEQ/L (5-15); BICARBONATE 24.5 MEQ/L (21.0-32.0); BLOOD UREA NITROGEN 5 MG/DL (7-18); CHLORIDE 103 MEQ/L (98-107); GLOMERULAR FILTRATION RATE 144 ML/MIN (>89); HDL CHOLESTEROL 47.2 MG/DL (40.0-60.0); LDL CHOLESTEROL 46 MG/DL (0-99); SODIUM (NA) 137 MEQ/L (136-145)
[2016-10-30 08:01] LABS: POTASSIUM 3.9 MEQ/L (3.5-5.1)
[2016-10-30 08:14] LABS: CREATINE KINASE 570 U/L (26-192)
[2016-10-30] MEDS: CARVEDILOL 6.25 MG TAB PO SCH (08:45)
[2016-10-30] MEDS: LISINOPRIL 5 MG TAB PO SCH (08:45)
[2016-10-30] MEDS: ASPIRIN 81 MG CHEW TAB PO SCH (08:46)
[2016-10-30] MEDS: INSULIN DETEMIR 100 UNITS/ML VIAL SQ SCH (09:00)
[2016-10-30] MEDS ORDERED: TICAGRELOR 90 MG TAB PO SCH (09:00)
--- NOTE | 2016-10-30 10:24 | PD.CARD.PN ---
Subjective Subjective Remarks No CP or SOB, feels better Objective Medications Current Medications Medications (Trade) Dose Ordered Sig/Delisa Route Start Time Stop Time Status Last Admin Sodium Chloride 2 ml 2 ml UNSCH PRN IVF 10/29/16 06:15 (Nitroglycerin-Dextrose Inj) 250 ml @ 0 mls/hr TITRATE IV 10/29/16 06:30 10/29/16 07:02 (Restoril) 15 mg HS PRN PO 10/29/16 08:00 (Aspirin Chew) 81 mg DAILY PO 10/29/16 09:00 10/30/16 08:46 (Brilinta) 90 mg BID PO 10/30/16 09:00 10/30/16 08:45 (Coreg) 6.25 mg BID PO 10/29/16 09:00 10/30/16 08:45 (Prinivil) 5 mg DAILY PO 10/29/16 09:00 10/30/16 08:45 (Lipitor) 40 mg HS PO 10/29/16 21:00 10/29/16 21:38 (D50w (Vial) Inj) 50 ml UNSCH PRN IV 10/29/16 14:45 (Glucagon Inj) 1 mg UNSCH PRN OTHER 10/29/16 14:45 (Percocet 5-325 Mg) 1 tab Q4H PRN PO 10/29/16 14:45 10/29/16 21:39 (Percocet 5-325 Mg) 2 tab Q4H PRN PO 10/29/16 14:45 (Trandate Inj) 10 mg Q20M PRN IV PUSH 10/29/16 14:45 (Morphine Inj) 2 mg Q3H PRN IV PUSH 10/29/16 14:45 (Zofran Inj) 4 mg Q6H PRN IV PUSH 10/29/16 20:45 (Levemir Inj) 10 units Q12HR SQ 10/29/16 21:00 10/30/16 09:00 Vital Signs / I&O Vital Signs Date Time Temp Pulse Resp B/P Pulse Ox O2 Delivery O2 Flow Rate FiO2 10/30/16 08:30 97.6 94 18 150/96 100 10/30/16 07:01 98.7 95 16 143/101 100 10/30/16 06:00 98 10/30/16 05:00 92 10/30/16 04:00 98 10/30/16 03:00 90 10/30/16 02:00 80 10/30/16 01:00 102 10/30/16 00:00 92 10/29/16 23:00 98.6 101 16 140/102 99 10/29/16 23:00 85 10/29/16 22:00 102 10/29/16 21:00 114 10/29/16 20:20 98.8 110 16 150/98 100 10/29/16 20:00 98 10/29/16 19:00 98 10/29/16 18:01 96 10/29/16 17:01 100 10/29/16 16:00 92 10/29/16 15:15 18 10/29/16 15:15 18 10/29/16 15:01 98.9 99 18 146/96 100 10/29/16 15:00 100 10/29/16 14:00 98 10/29/16 13:00 100 10/29/16 12:01 106 10/29/16 11:01 97.6 110 18 148/98 100 10/29/16 11:00 104 I/O 10/29/16 10/29/16 10/29/16 10/30/16 10/30/16 10/30/16 07:00 15:00 23:00 07:00 15:00 23:00 Intake Total 1240 ml 480 ml Output Total 400 ml 700 ml Balance 840 ml -220 ml Intake Oral 240 ml 480 ml IV Total 1000 ml Output Urine Total 400 ml 700 ml # Voids 2 # Bowel Movements 0 0 Physical Exam GENERAL: In NAD SKIN: Warm and dry. HEAD: Normocephalic. EYES: No scleral icterus. No injection or drainage. NECK: Supple, trachea midline. No JVD or lymphadenopathy. CARDIOVASCULAR: Regular rate and rhythm without murmurs, gallops, or rubs. RESPIRATORY: Breath sounds equal bilaterally. No accessory muscle use. GASTROINTESTINAL: Abdomen soft, non-tender, nondistended. MUSCULOSKELETAL: No cyanosis, or edema. Groin stable Laboratory Laboratory Tests Test 10/29/16 10/30/16 11:55 06:31 White Blood Count 13.0 TH/MM3 10.1 TH/MM3 Red Blood Count 4.33 MIL/MM3 3.88 MIL/MM3 Hemoglobin 12.1 GM/DL 10.8 GM/DL Hematocrit 36.9 % 33.1 % Mean Corpuscular Volume 85.2 FL 85.2 FL Mean Corpuscular Hemoglobin 27.9 PG 27.9 PG Mean Corpuscular Hemoglobin 32.8 % 32.7 % Concent Red Cell Distribution Width 12.9 % 12.9 % Platelet Count 369 TH/MM3 324 TH/MM3 Mean Platelet Volume 8.4 FL 8.4 FL Neutrophils (%) (Auto) 91.2 % 60.5 % Lymphocytes (%) (Auto) 7.1 % 32.3 % Monocytes (%) (Auto) 1.3 % 4.6 % Eosinophils (%) (Auto) 0.0 % 2.2 % Basophils (%) (Auto) 0.4 % 0.4 % Neutrophils # (Auto) 11.9 TH/MM3 6.1 TH/MM3 Lymphocytes # (Auto) 0.9 TH/MM3 3.3 TH/MM3 Monocytes # (Auto) 0.2 TH/MM3 0.5 TH/MM3 Eosinophils # (Auto) 0.0 TH/MM3 0.2 TH/MM3 Basophils # (Auto) 0.1 TH/MM3 0.0 TH/MM3 CBC Comment DIFF FINAL DIFF FINAL Differential Comment Sodium Level 137 MEQ/L Potassium Level 3.9 MEQ/L Chloride Level 103 MEQ/L Carbon Dioxide Level 24.5 MEQ/L Anion Gap 10 MEQ/L Blood Urea Nitrogen 5 MG/DL Creatinine 0.58 MG/DL Estimat Glomerular Filtration 144 ML/MIN Rate Random Glucose 252 MG/DL Calcium Level 7.7 MG/DL Total Creatine Kinase 570 U/L Creatine Kinase MB 43.0 NG/ML Creatine Kinase MB % 7.5 % Triglycerides Level 68 MG/DL Cholesterol Level 107 MG/DL LDL Cholesterol 46 MG/DL HDL Cholesterol 47.2 MG/DL Cholesterol/HDL Ratio 2.26 RATIO Imaging Last Impressions Chest X-Ray 10/29/16 0608 Signed Impressions: Service Date/Time: October 06:08 - CONCLUSION: No acute cardiopulmonary disease. Kasey Shaver MD Assessment and Plan Problem List: (1) STEMI (ST elevation myocardial infarction) (2) Type 2 diabetes mellitus (3) Hypertension Assessment and Plan Stable post IN and PCI. Groin without hematoma. Renal fx stable. BP increased, titrate beta aissatou and lisinopril. Continue atorvastatin, recheck lipids in 2 months. Continue Brilinta for 3 months and baby ASA long-term. Continue DM management. OK to discharge home, will schedule outpatient f/u within 2 weeks. She will stay out of work until her f/u appt. Problem Qualifiers (1) STEMI (ST elevation myocardial infarction): Qualified Code: I21.3 - ST elevation myocardial infarction (STEMI), unspecified artery (2) Type 2 diabetes mellitus: Qualified Code: E11.9 - Type 2 diabetes mellitus without complication, without long-term current use of insulin (3) Hypertension: Qualified Code: I10 - Essential hypertension Juanita So MD Oct 30, 2016 10:24
[2016-10-30] MEDS ORDERED: LEVEMIR SQ (10:53)
[2016-10-30] MEDS ORDERED: NOVOLOGP2 SQ (10:53)
[2016-10-30] MEDS ORDERED: ASPI81CH25 PO (10:55)
[2016-10-30] MEDS ORDERED: BRIL90TA PO (10:55)
[2016-10-30] MEDS ORDERED: CARV6.25 PO (10:55)
--- NOTE | 2016-10-30 10:56 | HHI.DCPOC ---
Discharge Care Plan Diagnosis: (1) STEMI (ST elevation myocardial infarction) (2) Type 2 diabetes mellitus (3) Hypertension Goals to Promote Your Health * To prevent worsening of your condition and complications * To maintain your health at the optimal level Directions to Meet Your Goals Take your medications as prescribed Follow your dietary instruction Follow activity as directed Keep your appointments as scheduled Take your immunizations and boosters as scheduled If your symptoms worsen call your PCP, if no PCP go to Urgent Care Center or Emergency Room Smoking is Dangerous to Your Health. Avoid second hand smoke Call the 24-hour hour crisis hotline for domestic abuse at Bhavin Lafleur MD Oct 30, 2016 10:56
--- NOTE | 2016-10-30 10:59 | HHI.DS ---
Discharge Summary Admission Date Oct 29, 2016 at 07:17 Discharge Date: Oct 30, 2016 Admitting Diagnosis STEMI (1) STEMI (ST elevation myocardial infarction) ICD Code: I21.3 (2) Type 2 diabetes mellitus ICD Code: E11.9 (3) Abdominal pain ICD Code: R10.9 (4) Hypertension ICD Code: I10 (5) Nausea & vomiting ICD Code: R11.2 (6) SIRS (systemic inflammatory response syndrome) ICD Code: R65.10 (7) Transaminitis ICD Code: R74.0 Procedures Heart catheterization with stent placement to the RCA by Dr. So. Brief History - From Admission History of present illness from the admitting physician 36-year-old female with past medical history of diabetes mellitus type 2, hypertension who presents to [facility] complaining of chest pain radiating to the left arm which started about 1 AM. The patient states that her pain was very severe, 8/10 in intensity that initially started on the chest and is described as aching which then radiated to the left arm, associated with several episodes of nausea and vomiting. Patient denies shortness of breath, palpitations, cough. Patient states that before the chest pain she had abdominal pain. Patient is currently complaining of chest pain radiating to the left arm and tingling of the fingers. CBC/BMP: 10/30/16 0631 10/30/16 0631 Significant Findings Laboratory Tests Test 10/29/16 10/29/16 10/30/16 06:05 11:55 06:31 White Blood Count 15.7 TH/MM3 13.0 TH/MM3 (4.0-11.0) (4.0-11.0) Neutrophils (%) (Auto) 83.0 % 91.2 % (16.0-70.0) (16.0-70.0) Neutrophils # (Auto) 13.0 TH/MM3 11.9 TH/MM3 (1.8-7.7) (1.8-7.7) Activated Partial 20.8 SEC Thromboplast Time (24.3-30.1) D-Dimer Quantitative (PE/DVT) 12.55 MG/L FEU (0.00-0.50) Bedside Sodium 136 MMOL/L (138-146) Sodium Level 134 MEQ/L (136-145) Bedside Creatinine 0.5 MG/DL (0.6-1.0) Bedside Glucose 421 MG/DL (60-95) Random Glucose 392 MG/DL 252 MG/DL (74-106) (74-106) Aspartate Amino Transf 51 U/L (15-37) (AST/SGOT) Alanine Aminotransferase 58 U/L (10-53) (ALT/SGPT) Troponin I LESS THAN 0.02 NG/ML (0.02-0.05) Albumin 3.3 GM/DL (3.4-5.0) Lymphocytes (%) (Auto) 7.1 % (9.0-44.0) Lymphocytes # (Auto) 0.9 TH/MM3 (1.0-4.8) Red Blood Count 3.88 MIL/MM3 (4.00-5.30) Hemoglobin 10.8 GM/DL (11.6-15.3) Hematocrit 33.1 % (35.0-46.0) Blood Urea Nitrogen 5 MG/DL (7-18) Calcium Level 7.7 MG/DL (8.5-10.1) Total Creatine Kinase 570 U/L (26-192) Creatine Kinase MB 43.0 NG/ML (0.5-3.6) Creatine Kinase MB % 7.5 % (0.0-4.0) Cholesterol Level 107 MG/DL (120-200) Imaging Last Impressions Chest X-Ray 10/29/16 0608 Signed Impressions: Service Date/Time: October 06:08 - CONCLUSION: No acute cardiopulmonary disease. Kasey Shaver MD Pt update on day of discharge Patient reports she is feeling well this morning. No chest pain or shortness of breath. Anxious to go home. We discussed discharge planning at length including uncontrolled blood glucose and the need to be on insulin. Hospital Course The patient is a 36-year-old female with a medical history significant for hypertension, diabetes who presented to the hospital with complaint of acute chest pain. Patient was found to have a STEMI. She was emergently taken to [facility] and underwent left heart catheterization with stenting of the RCA. Patient followed by cardiology. She is discharged on Brilinta, aspirin, Coreg , lisinopril, and a statin. The patient's blood glucose has been uncontrolled. Probably made worse due to stress from [place]. She is discharged on Levemir and a sliding scale insulin in addition to metformin. She is advised to follow-up with her primary care physician within a couple of days and keep a log of her blood glucose to adjust diabetes medications as indicated. I attempted to call her primary care physician but the office was closed. 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 Follow up Referrals: Cardiology with Juanita So MD PCP Follow-up - 2-[address] Dave New Medications: Insulin Aspart Inj (Novolog Inj) 1,000 Unit/10 Ml Vial 1-9 UNITS SQ ACHS sugars less than 70,(0)units; sugars 150-199,(1) unit; sugars 200-249,(3) units; sugars 250-299,(5) units; sugars 300-349,(7) units; sugars greater than 349,(9) units Blood Sugar Management #10 Ref 0 ML Insulin Detemir Inj (Levemir Inj) 1,000 unit/ 10 ML Vial 10 UNITS SQ BID Do not mix with any other Insulin. Blood Sugar Management #1 Ref 0 VIAL Aspirin (Aspirin Low Strength) 81 Mg Chew 81 MG PO DAILY #30 EA Carvedilol (Coreg) 6.25 Mg Tab 12.5 MG PO BID Days 30 TAB Ticagrelor (Brilinta) 90 Mg Tab 90 MG PO BID Days 30 TAB Continued Medications: Lisinopril (Lisinopril) 10 Mg Tab 10 MG PO DAILY #30 Ref 0 TAB Metformin (Metformin) 500 Mg Tab 500 MG PO BIDPC With meals Blood Sugar Management #60 Ref 0 TAB Norgestimate-Ethinyl Estradiol (Tri-Sprintec) 0.18/0.215/0.25 Mg-35 Mcg Tab Bhavin Lafleur MD Oct 30, 2016 10:59
[2016-10-30 15:18] LABS: HEMOGLOBIN A1a 1.4 %; HEMOGLOBIN A1b 2.6 %; HEMOGLOBIN Ao 76.6 %; HEMOGLOBIN LA1C 2.8 %; HEMOGLOBIN P3 4.8 %
--- NOTE | 2016-10-30 22:25 | EKG ---
Date Performed: 10/30/2016 Time Performed: 06:35:02 PTAGE: 36 years EKG: Sinus rhythm Inferior and anterior T wave changes are abnormal Abnormal ECG PREVIOUS TRACING : 10/29/2016 21.25 DOCTOR: Citlaly Chavez Interpretating Date/Time 10/30/2016 22:23:34
--- NOTE | 2016-10-30 22:35 | EKG ---
Date Performed: 10/29/2016 Time Performed: 21:25:26 PTAGE: 36 years EKG: Sinus tachycardia Inferior and anterior T wave changes are borderline abnormal Borderline E CG PREVIOUS TRACING : 10/29/2016 14.56 DOCTOR: Citlaly Chavez Interpretating Date/Time 10/30/2016 22:33:18
--- NOTE | 2016-10-30 22:48 | EKG ---
Date Performed: 10/29/2016 Time Performed: 14:56:18 PTAGE: 36 years EKG: Sinus rhythm . Normal ECG NO PREVIOUS TRACING DOCTOR: Citlaly Chavez Interpretating Date/Time 10/30/2016 22:46:19
--- NOTE | 2016-10-31 07:07 | MH ---
cc: LUCINDA RUFFIN DATE OF ADMISSION: 10/29/2016 HISTORY: This is a 36-year-old black male with history of hypertension, diabetes mellitus, who developed severe left-sided chest pain radiating to the left arm and abdomen, started around 1:00 in the morning, she was woken up from her sleep with pain. She presented to the emergency room, she was diagnosed with a acute inferior wall myocardial function. She is referred for emergent coronary intervention. PAST MEDICAL HISTORY 1. Positive for hypertension 2. Diabetes mellitus. 3. No history of dyslipidemia, Coronary disease or cerebrovascular accident. MEDICATIONS: 1. Metformin 500 mg twice a day. 2. Lisinopril 10 mg a day 3. control pills. ALLERGIES NONE SOCIAL HISTORY The patient does not smoke. She does not drink alcohol. FAMILY HISTORY: Family history is positive for diabetes mellitus negative for coronary disease. REVIEW OF SYSTEMS Review of systems is otherwise negative. PHYSICAL EXAMINATION VITAL SIGNS: Blood pressure 164/108, pulse 99 and regular. HEAD, EYES, EARS, NOSE, AND THROAT: Negative, positive upstrokes, no bruits. LUNGS: Clear. HEART: Regular with no murmur, gallop, rub. ABDOMEN: Soft No bruits. EXTREMITIES: Without edema, distal pulses. NEUROLOGIC: Nonfocal. RADIOLOGIC: EKG was reviewed and showed sinus rhythm and prominent inferior ST elevations with lateral vesicle changes. LABORATORY DATA Hemoglobin 14.2, potassium 4.0, creatinine 0.8, troponin less than 0.02. DIAGNOSIS 1. Acute inferior wall myocardial function. 2. Diabetes mellitus 3. Hypertension. DISPOSITION: Miss. Restrepo will be monitored, she will undergo emergent cardiac catheterization and coronary intervention. She wishes to proceed. MD MARCOS Bazzi/linus /7:46 AM /12:13 PM
--- NOTE | 2016-10-31 09:01 | MA ---
cc: LUCINDA RUFFIN DATE: 10/29/2016 REASON FOR PROCEDURE: Acute ST elevation myocardial infarction. PROCEDURE PERFORMED 1. Retrograde left heart catheterization with left ventriculography and selective coronary angiography. 2. Thrombectomy, angioplasty and stenting of the right coronary artery. 3. Moderate sedation ACCESS SITE: Right femoral artery. EQUIPMENT USED: 5 English pigtail, 5 JL-4 AR modified coronary catheters, AR-1 guide, Marker wire, Neoga thrombectomy catheter, 2.5 mm balloon. 3.0 x 12 cm Integrity stent at 14 atmospheres. MEDICATIONS 1. Versed IV. 2. Fentanyl IV 3. Heparin IV bolus 4. Brilinta 180 mg p.o. CONTRAST Omnipaque 120 cc COMPLICATIONS None BLOOD LOSS Less than 10 cc METHOD OF HEMOSTASIS: Angio-Seal closure RESULTS HEMODYNAMICS Heart rate 90 beats per minute, left ventricular end-diastolic pressure 5 mmHg, left ventricle 135/5, aorta 135/76/110. LEFT VENTRICULOGRAPHY Left ventricular ejection fraction of 55%. Wall motion: infraapical akinesis, no mitral regurgitation. CORONARY ANGIOGRAPHY Left main coronary patent. Left anterior descending coronary artery has 40% stenosis in the mid portion, D1 patent, D2 patent. The left circumflex artery is patent. OM1 patent. OM2 patent. The right coronary artery has 90% distal stenosis with thrombus. PLV patent. PDA secondary branch is totally occluded in its distal portion. The stenosis in the distal right coronary was 90%, length 8 mm, pre TIMIT flow 2, post OSMAR flow 3, post stenosis 0, type C lesion. POST INTERVENTION ANGIOGRAPHY: Revealed excellent patency of the stented segment and no evidence of dissection or thrombosis. DIAGNOSIS: 1. Acute inferior wall myocardial function. 2. Coronary artery disease with severe stenosis of the distal right coronary artery with thrombus. 3. Overall preserved left ventricular systolic function. 4. Successful thrombectomy, angioplasty and stenting of the distal right coronary artery. DISPOSITION Ms. Restrepo will be monitored on telemetry after her procedure. We will continue therapy with Brilinta for at least three months and baby aspirin indefinitely. She will continue aggressive modification of her cardiac risk factors. MD MARCOS Bazzi/linus /7:50 AM /7:33 AM AVANI
== END 2016-10-30 13:18 | disposition home or self-care (01) | DRG 249 ==
LOC: NEPE 05:49 → NEDA 07:17 → HCIS 07:48
PROVIDERS: ADMIT Internal Medicine Interventional Cardiology; ATTEND Internal Medicine Interventional Cardiology
PROC: 02703EZ Dilation of Coronary Artery, One Artery with Two Intraluminal Devices, Percutaneous Approach (ICD-10-PCS; principal; 2016-10-29)
PROC: 02C03ZZ Extirpation of Matter from Coronary Artery, One Artery, Percutaneous Approach (ICD-10-PCS; 2016-10-29)
PROC: 4A023N7 Measurement of Cardiac Sampling and Pressure, Left Heart, Percutaneous Approach (ICD-10-PCS; 2016-10-29)
PROC: B2111ZZ Fluoroscopy of Multiple Coronary Arteries using Low Osmolar Contrast (ICD-10-PCS; 2016-10-29)
PROC: B2151ZZ Fluoroscopy of Left Heart using Low Osmolar Contrast (ICD-10-PCS; 2016-10-29)
DX: I21.19 ST elevation (STEMI) myocardial infarction involving other coronary artery of inferior wall (principal); R65.10 Systemic inflammatory response syndrome (SIRS) of non-infectious origin without acute organ dysfunction; E11.65 Type 2 diabetes mellitus with hyperglycemia; I25.10 Atherosclerotic heart disease of native coronary artery without angina pectoris; I10 Essential (primary) hypertension; R10.31 Right lower quadrant pain; R74.0 Nonspecific elevation of levels of transaminase and lactic acid dehydrogenase [LDH]; Z79.84 Long term (current) use of oral hypoglycemic drugs
CPT/HCPCS: 71010; 80048; 80053; 80061; 82435; 82550; 82552; 82565; 82947; 82948; 83036; 83690; 83735; 84132; 84295; 84484; 84520; 85002; 85025; 85379; 85610; 85730; 92941; 93005; 93458; 96374; 96375; C1725; C1757; C1760; C1769; C1876; C1893; G0269; J1644; J1815; J2060; J2250; J2270; J2405; J3010; J3246; J7030; Q9967

== ENCOUNTER 2016-12-20 11:42 | Observation (INO) | payer BC ==
[2016-12-20] VITALS (9 sets, daily range): BP systolic 107–132; BP diastolic 64–81; PULSE 76–90; RESP 14–18; TEMP 97.8–98.7; O2SAT 97–100
[~2016-12-20] VITALS: Ht 152.4 cm; Wt 58.0 kg
[~2016-12-20 11:42] MED LIST changes: +ASPI81CH25 PO; +BRIL90TA PO; +CARV6.25 PO; -CIPR500T4 PO; -GLUC1000 PO; +LEVEMIR SQ; -LISI-360 PO; +LISI10TA3 PO; +METF500T PO; +NOVOLOGP2 SQ; -PROT40TA PO; +TRI-TAB; -Z.0.BCPILL PO
--- NOTE | 2016-12-20 13:04 | PD ---
HPI . nausea & vomiting x 1 week Chief Complaint: GI Complaint Time Seen by Provider: 13:04 Travel History International Travel<30 days: No Contact w/Intl Traveler<30days: No Traveled to known affect area: No History of Present Illness HPI 36-year-old female with past medical history significant for diabetes, hypertension, recent myocardial infarction in October here with complaints of nausea and vomiting for about one week. Patient tells me that she is unable to hold any food down. She says she is only been taking her medications. She didn 't think much of it, however this morning she started to develop some left arm pain/numbness along with some pain in her right upper quadrant. She also reports that her blood sugars have been elevated in the range of 260-344. 2 weeks ago she saw her primary care provider Dr. Dave, who increased her metformin and also changed her insulin dosing. She tells me that prior to her first heart attack she also had some nausea and vomiting, therefore she is concerned about her symptoms. She is accompanied by her significant other. She denies any actual chest pain, diaphoresis, shortness of breath or other issues. PFSH Past Medical History Autoimmune Disease: No Anxiety: No Depression: No Cancer: No Cardiovascular Problems: Yes ([place] 2017, HTN ) Diabetes: Yes Diminished Hearing: No Endocrine: Yes Genitourinary: Yes (FREQUENCY) Hypertension: Yes Immune Disorder: No Musculoskeletal: No Neurologic: No Psychiatric: No Reproductive: No Respiratory: No ?: Not LMP: 11/30 : 1 Para: 1 Miscarriage: 0 : 0 Past Surgical History Abdominal Surgery: Yes ("TUMMY TUCK") Section: Yes Other Surgery: Yes ("TUMMY TUCK") Social History Alcohol Use: No Tobacco Use: No Substance Use: No Allergies-Medications (Allergen,Severity, Reaction): Coded Allergies: No Known Allergies (Verified , 12/20/16) Reported Meds & Prescriptions Reported Meds & Active Scripts Active Macrobid (Nitrofurantoin Monohydrate Macrocrystals) 100 Mg Capsule 100 Mg PO BID 7 Days Brilinta (Ticagrelor) 90 Mg Tab 90 Mg PO BID 30 Days Coreg (Carvedilol) 6.25 Mg Tab 12.5 Mg PO BID 30 Days Aspirin Low Strength (Aspirin) 81 Mg Chew 81 Mg PO DAILY Reported Levemir Inj (Insulin Detemir) 1,000 unit/ 10 ML Vial 40 Units SQ HS Do not mix with any other Insulin. Metformin (Metformin HCl) 500 Mg Tab 750 Mg PO BIDPC With meals Lisinopril 10 Mg Tab 10 Mg PO BID Review of Systems General / Constitutional: No: Fever Eyes: No: Visual changes HENT: No: Headaches Cardiovascular: No: Chest Pain or Discomfort Respiratory: No: Shortness of Breath Gastrointestinal: Positive: Nausea, Vomiting, Abdominal Pain (RUQ) Genitourinary: No: Dysuria Musculoskeletal: Positive: Pain (left arm pain ) Skin: No Rash Neurologic: No: Weakness Psychiatric: No: Depression Endocrine: No: Polydipsia Hematologic/Lymphatic: No: Easy Bruising Physical Exam Narrative GENERAL: AAO x 3, no acute distress, Well-nourished, well-developed patient. SKIN: Warm and dry. No visible rashes or bruising. HEAD: Normocephalic and atraumatic. EYES: No scleral icterus. No injection or drainage. EOM intact, PERRLA ENT: No nasal drainage noted. Mucous membranes pink. Airway patent. dry mucous membranes, NECK: Supple, trachea midline. No JVD. CARDIOVASCULAR: Regular rate and rhythm without murmurs, gallops, or rubs. No reproducible chest pain on examination. RESPIRATORY: Breath sounds equal bilaterally. No accessory muscle use. No rhonchi or rales. GASTROINTESTINAL: Abdomen soft, mild tenderness to palpation in RUQ, no rebound or guarding, EXTREMITIES: No cyanosis or edema. BACK: No obvious deformity. NEURO: CN II-12 intact, operations team leader strength normal b/l, UE and LE 5/5, no focal deficits PSYCH: AAO x 3, normal affect. Data Data Last Documented VS Vital Signs Date Time Temp Pulse Resp B/P Pulse Ox O2 Delivery O2 Flow Rate FiO2 12/20/16 16:25 82 16 114/77 100 Room Air 12/20/16 11:44 98.4 Orders Complete Blood Count With Diff (12/20/16 12:00) Basic Metabolic Panel (Bmp) (12/20/16 12:00) Prothrombin Time / Inr (Pt) (12/20/16 12:00) Electrocardiogram (12/20/16 ) Ckmb (Isoenzyme) Profile (12/20/16 13:05) Comprehensive Metabolic Panel (12/20/16 13:05) Magnesium (Mg) (12/20/16 13:05) Act Partial Throm Time (Ptt) (12/20/16 13:05) Troponin I (12/20/16 13:05) Lipase (12/20/16 13:05) Chest, Single Ap (12/20/16 13:05) Ecg Monitoring (12/20/16 13:05) Bilateral Bp Monitoring (12/20/16 13:05) Iv Access Insert/Monitor (12/20/16 13:05) Oximetry (12/20/16 13:05) Oxygen Administration (12/20/16 13:05) Sodium Chloride 0.9% Flush (Ns Flush) (12/20/16 13:15) Ed Urine Pregnancytest Poc (12/20/16 13:16) Urinalysis - C+S If Indicated (12/20/16 13:16) Lactic Acid (12/20/16 13:17) CKMB (12/20/16 12:30) CKMB% (12/20/16 12:30) Urine Culture (12/20/16 13:40) Troponin I (12/20/16 15:20) Electrocardiogram (12/20/16 12:33) Admit Order (Ed Use Only) (12/20/16 17:03) Labs Laboratory Tests Test 12/20/16 12/20/16 12/20/16 12:30 13:40 15:30 White Blood Count 7.9 TH/MM3 Red Blood Count 4.69 MIL/MM3 Hemoglobin 13.2 GM/DL Hematocrit 40.2 % Mean Corpuscular Volume 85.6 FL Mean Corpuscular Hemoglobin 28.2 PG Mean Corpuscular Hemoglobin 32.9 % Concent Red Cell Distribution Width 13.3 % Platelet Count 372 TH/MM3 Mean Platelet Volume 7.5 FL Neutrophils (%) (Auto) 73.7 % Lymphocytes (%) (Auto) 18.9 % Monocytes (%) (Auto) 5.4 % Eosinophils (%) (Auto) 1.7 % Basophils (%) (Auto) 0.3 % Neutrophils # (Auto) 5.9 TH/MM3 Lymphocytes # (Auto) 1.5 TH/MM3 Monocytes # (Auto) 0.4 TH/MM3 Eosinophils # (Auto) 0.1 TH/MM3 Basophils # (Auto) 0.0 TH/MM3 CBC Comment DIFF FINAL Differential Comment Prothrombin Time 11.2 SEC Prothromb Time International 1.0 RATIO Ratio Activated Partial 22.8 SEC Thromboplast Time Sodium Level 137 MEQ/L Potassium Level 3.6 MEQ/L Chloride Level 99 MEQ/L Carbon Dioxide Level 28.2 MEQ/L Anion Gap 10 MEQ/L Blood Urea Nitrogen 10 MG/DL Creatinine 0.76 MG/DL Estimat Glomerular Filtration 105 ML/MIN Rate Random Glucose 194 MG/DL Calcium Level 9.2 MG/DL Magnesium Level 1.5 MG/DL Total Bilirubin 1.0 MG/DL Aspartate Amino Transf 29 U/L (AST/SGOT) Alanine Aminotransferase 44 U/L (ALT/SGPT) Alkaline Phosphatase 139 U/L Total Creatine Kinase 120 U/L Creatine Kinase MB 0.9 NG/ML Troponin I LESS THAN 0.02 LESS THAN 0.02 NG/ML NG/ML Total Protein 8.3 GM/DL Albumin 3.8 GM/DL Lipase 94 U/L Urine Color YELLOW Urine Turbidity HAZY Urine pH 6.0 Urine Specific [place] 1.031 Urine Protein 30 mg/dL Urine Glucose (UA) TRACE mg/dL Urine Ketones 10 mg/dL Urine Occult Blood NEG Urine Nitrite NEG Urine Bilirubin NEG Urine Urobilinogen 8.0 MG/DL Urine Leukocyte Esterase NEG Urine RBC 1 /hpf Urine WBC 9 /hpf Urine Squamous Epithelial 7 /hpf Cells Urine Bacteria OCC /hpf Urine Hyaline Casts 34 /lpf Urine Mucus MANY /lpf Microscopic Urinalysis Comment CULTURE INDICATED Lactic Acid Level 1.1 mmol/L MDM Medical Decision Making Medical Screen Exam Complete: Yes Emergency Medical Condition: Yes Medical Record Reviewed: Yes Differential Diagnosis Gastroenteritis, ACS, angina, lupus, side effect of metformin, Narrative Course 36 yr old female here with nausea, vomiting, left arm pain and some mild abdominal pain. Her exam is fairly unremarkable except for mild pain with deep palpation to RUQ. IV access obtained. Patient placed on continuous cardiac monitoring. Labs have been ordered. EKG done and reviewed by Dr. Llamas. I do not believe CT scan of abdomen warranted. Her abdominal exam is fairly benign. She had a CT done in September that showed enteritis. Her labs have been reviewed. We recommend admission, however patient has some issues with work and being short staffed and does not wish to stay overnight. We discussed leaving against medical advice. She has agreed to a second troponin, but I advised her that this does not guarantee she is free of acute cardiac event. She still desires to leave despite discussing the risks. She does appear to have a UTI and I am providing antibiotics upon discharge for this. I recommend f/u with her PCP. Case has been discussed with my attending. 1636: Nurse presented AMA papers to patient and patient requested a work note. Our nurse explained that this was something we could not provide based on AMA discharge as I ultimately recommend admission with her recent cardiac history and vague symptoms. My nurse notified me that patient will now stay as she will need clearance to return to work. We have requested a call back for admission. Patient recently had STEMI about a month ago and would benefit from admission. 1700: Discussed with Dr. Waldron, who will make further recommendations and disposition the patient. Case was discussed with my attending. Diagnosis Primary Impression: UTI (urinary tract infection) Qualified Code: N30.00 - Acute cystitis without hematuria Admitting Information Admitting Physician Requests: Admit Scripts Nitrofurantoin Monohydrate Macrocrystals (Macrobid)100 Mg [id number] Mg PO BID 7 Days Ref 0 Prov:Lisa Llamas MD 12/20/16 Condition: Stable Rand Muñoz Dec 20, 2016 13:04
[2016-12-20] MEDS ORDERED: LEVEMIR SQ (13:14)
[2016-12-20] MEDS ORDERED: METF500T PO (13:14)
[2016-12-20] MEDS ORDERED: SODIUM CHLORIDE 0.9% FLUSH 10 ML FLUSH IVF PRN (13:15)
[2016-12-20 13:25] LABS: AUTOMATED NEUTROPHIL # 5.9 TH/MM3 (1.8-7.7); BASOPHIL % 0.3 % (0.0-2.0); EOSINOPHIL # 0.1 TH/MM3 (0-0.4); EOSINOPHIL % 1.7 % (0.0-4.0); HEMATOCRIT 40.2 % (35.0-46.0); HEMO FLAGS DIFF FINAL; LYMPH % 18.9 % (9.0-44.0); LYMPHOCYTE # 1.5 TH/MM3 (1.0-4.8); MEAN CELL VOLUME 85.6 FL (80.0-100.0); MEAN CORPUSCULAR HEMOGLOBIN 28.2 PG (27.0-34.0); MEAN CORPUSCULAR HGB CONC 32.9 % (32.0-36.0); MONO % 5.4 % (0.0-8.0); NEUT % 73.7 % (16.0-70.0); PLATELET COUNT 372 TH/MM3 (150-450); RED BLOOD COUNT 4.69 MIL/MM3 (4.00-5.30); RED CELL DISTRIBUTION WIDTH 13.3 % (11.6-17.2); WHITE BLOOD COUNT 7.9 TH/MM3 (4.0-11.0)
--- NOTE | 2016-12-20 13:33 | RADRPT ---
EXAM DATE/TIME: 12/20/2016 13:08 [facility] COMPARISON: CHEST SINGLE AP, October 29, 2016, 6:08. INDICATIONS : Chest pain and shortness of breath. MEDICAL HISTORY : Hypertension. Diabetes mellitus type II. SURGICAL HISTORY : Gastric bypass. ENCOUNTER: Initial ACUITY: 1 week PAIN SCORE: 2/10 LOCATION: Bilateral chest FINDINGS: A single view of the chest demonstrates the lungs to be symmetrically aerated without evidence of mas s, infiltrate or effusion. The cardiomediastinal contours are unremarkable. Osseous structures are intact. CONCLUSION: No evidence of acute cardiopulmonary disease. Chris Gordon MD on December 20, 2016 at 13:31 Board Certified Radiologist. This report was verified electronically.
[2016-12-20 13:37] LABS: ALT (GPT) 44 U/L (10-53); ANION GAP 10 MEQ/L (5-15); AST (GOT) 29 U/L (15-37); BICARBONATE 28.2 MEQ/L (21.0-32.0); BLOOD UREA NITROGEN 10 MG/DL (7-18); CHLORIDE 99 MEQ/L (98-107); GLOMERULAR FILTRATION RATE 105 ML/MIN (>89); MAGNESIUM 1.5 MG/DL (1.5-2.5); POTASSIUM 3.6 MEQ/L (3.5-5.1); SODIUM (NA) 137 MEQ/L (136-145)
[2016-12-20 13:38] LABS: APTT (PATIENT) 22.8 SEC (24.3-30.1); PROTHROMBIN TIME - PATIENT 11.2 SEC (9.8-11.6)
[2016-12-20 13:41] LABS: ALKALINE PHOSPHATASE 139 U/L (45-117); CREATINE KINASE 120 U/L (26-192)
[2016-12-20 13:53] LABS: CKMB 0.9 NG/ML (0.5-3.6)
[2016-12-20 14:13] LABS: BACTERIA, URINE OCC /hpf; BLOOD, URINE NEG (NEG); COMMENT (UR) CULTURE INDICATED; CULTURE IF INDICATED CULTURE INDICATED; GLUCOSE,URINE TRACE mg/dL (NEG); HYALINE CAST, URINE 34 /lpf (RARE); KETONE, URINE 10 mg/dL (NEG); MUCUS URINE MANY /lpf (OCC); NITRITE,URINE NEG (NEG); SQUAMOUS EPITHELIAL CELL URINE 7 /hpf (0-5); URINE COLOR YELLOW (YELLW/STRAW)
--- NOTE | 2016-12-20 15:33 | PD ---
Data Data Last Documented VS Vital Signs Date Time Temp Pulse Resp B/P Pulse Ox O2 Delivery O2 Flow Rate FiO2 12/20/16 14:43 76 14 107/67 100 Room Air 12/20/16 11:44 98.4 Orders Complete Blood Count With Diff (12/20/16 12:00) Basic Metabolic Panel (Bmp) (12/20/16 12:00) Prothrombin Time / Inr (Pt) (12/20/16 12:00) Electrocardiogram (12/20/16 ) Ckmb (Isoenzyme) Profile (12/20/16 13:05) Comprehensive Metabolic Panel (12/20/16 13:05) Magnesium (Mg) (12/20/16 13:05) Act Partial Throm Time (Ptt) (12/20/16 13:05) Troponin I (12/20/16 13:05) Lipase (12/20/16 13:05) Chest, Single Ap (12/20/16 13:05) Ecg Monitoring (12/20/16 13:05) Bilateral Bp Monitoring (12/20/16 13:05) Iv Access Insert/Monitor (12/20/16 13:05) Oximetry (12/20/16 13:05) Oxygen Administration (12/20/16 13:05) Sodium Chloride 0.9% Flush (Ns Flush) (12/20/16 13:15) Ed Urine Pregnancytest Poc (12/20/16 13:16) Urinalysis - C+S If Indicated (12/20/16 13:16) Lactic Acid (12/20/16 13:17) CKMB (12/20/16 12:30) CKMB% (12/20/16 12:30) Urine Culture (12/20/16 13:40) Troponin I (12/20/16 15:20) Labs Laboratory Tests Test 12/20/16 12/20/16 12:30 13:40 White Blood Count 7.9 TH/MM3 Red Blood Count 4.69 MIL/MM3 Hemoglobin 13.2 GM/DL Hematocrit 40.2 % Mean Corpuscular Volume 85.6 FL Mean Corpuscular Hemoglobin 28.2 PG Mean Corpuscular Hemoglobin 32.9 % Concent Red Cell Distribution Width 13.3 % Platelet Count 372 TH/MM3 Mean Platelet Volume 7.5 FL Neutrophils (%) (Auto) 73.7 % Lymphocytes (%) (Auto) 18.9 % Monocytes (%) (Auto) 5.4 % Eosinophils (%) (Auto) 1.7 % Basophils (%) (Auto) 0.3 % Neutrophils # (Auto) 5.9 TH/MM3 Lymphocytes # (Auto) 1.5 TH/MM3 Monocytes # (Auto) 0.4 TH/MM3 Eosinophils # (Auto) 0.1 TH/MM3 Basophils # (Auto) 0.0 TH/MM3 CBC Comment DIFF FINAL Differential Comment Prothrombin Time 11.2 SEC Prothromb Time International 1.0 RATIO Ratio Activated Partial 22.8 SEC Thromboplast Time Sodium Level 137 MEQ/L Potassium Level 3.6 MEQ/L Chloride Level 99 MEQ/L Carbon Dioxide Level 28.2 MEQ/L Anion Gap 10 MEQ/L Blood Urea Nitrogen 10 MG/DL Creatinine 0.76 MG/DL Estimat Glomerular Filtration 105 ML/MIN Rate Random Glucose 194 MG/DL Calcium Level 9.2 MG/DL Magnesium Level 1.5 MG/DL Total Bilirubin 1.0 MG/DL Aspartate Amino Transf 29 U/L (AST/SGOT) Alanine Aminotransferase 44 U/L (ALT/SGPT) Alkaline Phosphatase 139 U/L Total Creatine Kinase 120 U/L Creatine Kinase MB 0.9 NG/ML Troponin I LESS THAN 0.02 NG/ML Total Protein 8.3 GM/DL Albumin 3.8 GM/DL Lipase 94 U/L Urine Color YELLOW Urine Turbidity HAZY Urine pH 6.0 Urine Specific [place] 1.031 Urine Protein 30 mg/dL Urine Glucose (UA) TRACE mg/dL Urine Ketones 10 mg/dL Urine Occult Blood NEG Urine Nitrite NEG Urine Bilirubin NEG Urine Urobilinogen 8.0 MG/DL Urine Leukocyte Esterase NEG Urine RBC 1 /hpf Urine WBC 9 /hpf Urine Squamous Epithelial 7 /hpf Cells Urine Bacteria OCC /hpf Urine Hyaline Casts 34 /lpf Urine Mucus MANY /lpf Microscopic Urinalysis Comment CULTURE INDICATED Lactic Acid Level 1.1 mmol/L MDM Supervised Visit with BENEDICT: Yes Narrative Course The history, exam, and medical decision-making in the associated midlevel provider note were completed with my assistance. I reviewed and agree with the findings presented. I attest that I had a [id number] encounter with the patient on the same day, and personally performed and documented my assessment and findings in the medical record. *My assessment and Findings: This is a 36-year-old female who had a myocardial infarction with a stent to the RCA last month who presents to the emergency department with nausea, vomiting and epigastric discomfort that's been going on for 1 week. She came in because she was concerned about her heart. She has mild tenderness in the right upper quadrant and epigastrium. Labs are all reassuring. EKG demonstrates some ST depressions in the inferior leads and lateral leads which are unchanged from her discharge EKG. I had a long conversation with the patient. I urged her to stay in the hospital and have serial cardiac enzymes and be seen by cardiology given her recent stent placement and myocardial infarction. She is young and a stent reocclusion or recurrent DC would be devastating. She really doesn't want to stay her and she understands the risks of leaving. I don't think I can hold her against her will. Patient will be discharged home and she was urged to return if her symptoms worsen. Lisa Llamas MD Dec 20, 2016 15:33
[2016-12-20] MEDS ORDERED: MACR100C2 PO (15:52)
[2016-12-20] MEDS ORDERED: SODIUM CHLORIDE 0.9% FLUSH 10 ML FLUSH IV FLUSH PRN (17:30)
[2016-12-20] MEDS ORDERED: LACTULOSE SYRUP 20 GM/30 ML CUP PO PRN (17:30)
[2016-12-20] MEDS ORDERED: ONDANSETRON HCL 4 MG/2 ML VIAL IVP PRN (17:30)
[2016-12-20] MEDS ORDERED: ZOLPIDEM TARTRATE 5 MG TAB PO PRN (17:30)
[2016-12-20] MEDS ORDERED: NALOXONE HCL 0.4 MG/ML AMP IV PRN (17:30)
[2016-12-20] MEDS ORDERED: clonazePAM 0.5 MG TAB PO PRN (17:30)
[2016-12-20] MEDS ORDERED: MAGNESIUM HYDROXIDE SUSP 30 ML CUP PO PRN (17:30)
[2016-12-20] MEDS ORDERED: SENNOSIDES 8.6 MG TAB PO PRN (17:30)
[2016-12-20] MEDS ORDERED: PROCHLORPERAZINE 25 MG SUPP RECTAL PRN (17:30)
[2016-12-20] MEDS ORDERED: ACETAMINOPHEN 325 MG TAB PO PRN (17:30)
[2016-12-20] MEDS ORDERED: GLUCAGON 1 MG/ML VIAL OTHER PRN (17:30)
[2016-12-20] MEDS ORDERED: DEXTROSE 50% IN WATER 50 ML VIAL(D50) IV PRN (17:30)
[2016-12-20] MEDS ORDERED: BISACODYL 10 MG SUPP RECTAL PRN (17:30)
--- NOTE | 2016-12-20 17:58 | HHI.HP ---
[facility] Sena Dave MD Admission Diagnosis urinary tract infection, nausea/vomiting Diagnoses: (1) Anxiety Diagnosis: Secondary (2) STEMI (ST elevation myocardial infarction) Diagnosis: Secondary (3) UTI (urinary tract infection) Diagnosis: Principal (4) Nausea & vomiting Diagnosis: Secondary (5) Type 2 diabetes mellitus Diagnosis: Principal (6) Hypertension Diagnosis: Secondary (7) Abdominal pain Diagnosis: Secondary Chief Complaint: abdominal pain, nausea and vomiting x 1 weej Travel History International Travel<30 Days: No Contact w/Intl Traveler <30 Da: No Traveled to Known Affected Are: No History of Present Illness Ms. Restrepo is a 36-year-old female patient with a known medical history of recent NH in October 2016, diabetes and hypertension who presented to the ED with complaints of loss of appetite, nausea and vomiting for one week. Patient states that she has not been able to tolerate anything by mouth without associated nausea and vomiting. She states she feels dehydrated and weak. She also had noticed left arm stiffness this am upon awakening, with associated right chess pressure rated a 7/10 at its worse, constant in nature and lasting a few hours which eventually subsided. Denies any radiation. Admits to associated dyspnea. Denies any recent fever, chills, cough, headache or dysuria. She does state that these symptoms were similar to what she felt before her NH. Patient was just recently admitted in October 2016 with an acute inferior wall myocardial infarction undergoing a heart catheterization with distal RCA stent placement, continued on Brilinta and aspirin at home. Seen by Dr. So at that time and followed in the outpatient setting. Patient is also seeing her PCP, Dr. Dave, for management of her diabetes. Reportedly her last a1C was 6.7%, from 11% previously. Patient currently on Metformin and insulin. It should be noted that patient was having GI issues last year and had a full GI workup with colonoscopy and EGD which were unremarkable. Denies any recent diarrhea or hematochezia. Review of Systems Constitutional: COMPLAINS OF: Change in appetite, DENIES: Diaphoretic episodes , Fatigue, Fever, Chills, Dizziness Endocrine: DENIES: Abnorml menstrual pattern, Heat/cold intolerance Eyes: DENIES: Blurred vision, Eye pain, Photosensitivity Respiratory: DENIES: Cough, Hemoptysis Cardiovascular: COMPLAINS OF: Chest pain, DENIES: Palpitations, Syncope, Dyspnea on Exertion Gastrointestinal: COMPLAINS OF: Abdominal pain, Nausea, Vomiting, DENIES: Black stools, Bloody stools, Diarrhea Genitourinary: COMPLAINS OF: Urinary frequency, Urgency, DENIES: Dysuria Musculoskeletal: DENIES: Joint pain, Muscle aches Integumentary: DENIES: Rash Neurologic: DENIES: Headache, Localized weakness Psychiatric: COMPLAINS OF: Anxiety, DENIES: Confusion, Mood changes, Depression, Hallucinations, Agitation Except as stated in HPI: all other systems reviewed are Neg Past Family Social History Past Medical History Hypertension Diabetes mellitus Recent NH in October 2016 Hyperlipidemia Poor compliance Past Surgical History Reported Medications Active Macrobid (Nitrofurantoin Monohydrate Macrocrystals) 100 Mg Capsule 100 Mg PO BID 7 Days Brilinta (Ticagrelor) 90 Mg Tab 90 Mg PO BID 30 Days Coreg (Carvedilol) 6.25 Mg Tab 12.5 Mg PO BID 30 Days Aspirin Low Strength (Aspirin) 81 Mg Chew 81 Mg PO DAILY Reported Levemir Inj (Insulin Detemir) 1,000 unit/ 10 ML Vial 40 Units SQ HS Do not mix with any other Insulin. Metformin (Metformin HCl) 500 Mg Tab 750 Mg PO BIDPC With meals Lisinopril 10 Mg Tab 10 Mg PO BID Allergies: Coded Allergies: No Known Allergies (Verified , 12/20/16) Active Ordered Medications Current Medications Sodium Chloride (NS Flush) 2 ml UNSCH PRN IVF FLUSH AFTER USING IV ACCESS; Start 12/20/16 at 13:15 Dextrose (D50w (Vial) Inj) 50 ml UNSCH PRN IV HYPOGLYCEMIA-SEE COMMENTS; Start 12/20/16 at 17:30 Glucagon (Glucagon Inj) 1 mg UNSCH PRN OTHER HYPOGLYCEMIA-SEE COMMENTS; Start 12/20/16 at 17:30 Insulin Aspart (NovoLOG SUPPLEMENTAL SCALE) 1 ACHS SLIDING SCALE SQ ; Start 12/20/16 at 21:00 Sodium Chloride (NS Flush) 2 ml UNSCH PRN IV FLUSH FLUSH AFTER USING IV ACCESS ; Start 12/20/16 at 17:30 Sodium Chloride (NS Flush) 2 ml BID IV FLUSH ; Start 12/20/16 at 21:00 Acetaminophen (Tylenol) 650 mg Q4H PRN PO TEMP > 100.4; Start 12/20/16 at 17:30 Ondansetron HCl (Zofran Inj) 4 mg Q6H PRN IVP NAUSEA OR VOMITING; Start at 17:30 Prochlorperazine (Compazine Supp) 25 mg Q12H PRN RECTAL NAUSEA OR VOMITING; Start 12/20/16 at 17:30 Zolpidem Tartrate (Ambien) 5 mg HS PRN PO INSOMNIA; Start 12/20/16 at 17:30 Enoxaparin Sodium (Lovenox Inj) 40 mg Q24H SQ ; Start 12/20/16 at 19:00 Naloxone HCl (Narcan Inj) 0.4 mg UNSCH PRN IV SEE LABEL COMMENTS; Start at 17:30 Senna/Docusate Sodium (Kayla-Colace) 1 tab BID PO ; Start 12/20/16 at 21:00 Magnesium Hydroxide (Milk Of Magnesia Liq) 30 ml Q12H PRN PO MILD - MODERATE CONSTIPATION; Start 12/20/16 at 17:30 Sennosides (Senokot) 17.2 mg Q12H PRN PO MODERATE - SEVERE CONSTIPATION; Start 12/20/16 at 17:30 Bisacodyl (Dulcolax Supp) 10 mg DAILY PRN RECTAL SEVERE CONSITIPATION; Start at 17:30 Lactulose 30 ml 30 ml DAILY PRN PO SEVERE CONSITIPATION; Start 12/20/16 at 17:30 Ceftriaxone Sodium/Sodium Chloride (Rocephin Inj/NS Inj) 100 ml @ 200 mls/hr Q12H IV ; Start 12/20/16 at 19:00 Aspirin (Aspirin Chew) 81 mg DAILY PO ; Start 12/21/16 at 09:00 Carvedilol (Coreg) 12.5 mg BID PO ; Start 12/20/16 at 21:00 Lisinopril (Prinivil) 10 mg BID PO ; Start 12/20/16 at 21:00 Ticagrelor (Brilinta) 90 mg BID PO ; Start 12/20/16 at 21:00 Metformin HCl (Glucophage) 850 mg TID PO ; Start 12/20/16 at 18:00 Insulin Detemir (Levemir Inj) 25 units HS SQ ; Start 12/20/16 at 21:00 Clonazepam (KlonoPIN) 0.5 mg Q8HR PRN PO ANXIETY; Start 12/20/16 at 17:30 Atorvastatin Calcium (Lipitor) 40 mg HS PO ; Start 12/20/16 at 21:00 Current Medications Medications (Trade) Dose Ordered Sig/Delisa Route Start Time Stop Time Status Last Admin (NS Flush) 2 ml UNSCH PRN IVF 12/20/16 13:15 (D50w (Vial) Inj) 50 ml UNSCH PRN IV 12/20/16 17:30 UNV (Glucagon Inj) 1 mg UNSCH PRN OTHER 12/20/16 17:30 UNV (NS Flush) 2 ml UNSCH PRN IV FLUSH 12/20/16 17:30 UNV (NS Flush) 2 ml BID IV FLUSH 12/20/16 21:00 UNV (Tylenol) 650 mg Q4H PRN PO 12/20/16 17:30 UNV (Zofran Inj) 4 mg Q6H PRN IVP 12/20/16 17:30 UNV (Compazine Supp) 25 mg Q12H PRN NE 12/20/16 17:30 UNV (Ambien) 5 mg HS PRN PO 12/20/16 17:30 UNV (Lovenox Inj) 40 mg Q24H SQ 12/20/16 17:30 UNV (Narcan Inj) 0.4 mg UNSCH PRN IV 12/20/16 17:30 UNV (Kayla-Colace) 1 tab BID PO 12/20/16 21:00 UNV (Milk Of Magnesia Liq) 30 ml Q12H PRN PO 12/20/16 17:30 UNV (Senokot) 17.2 mg Q12H PRN PO 12/20/16 17:30 UNV (Dulcolax Supp) 10 mg DAILY PRN RECTAL 12/20/16 17:30 UNV (Lactulose Liq) 30 ml DAILY PRN PO 12/20/16 17:30 UNV Family History Maternal family medical history significant for cardiovascular disease. Patient unaware of paternal medical history. Social History Patient denies any past or current tobacco use. Denies any alcohol use. Denies any illicit drug use. Physical Exam Vital Signs Vital Signs Date Time Temp Pulse Resp B/P Pulse Ox O2 Delivery O2 Flow Rate FiO2 12/20/16 16:25 82 16 114/77 100 Room Air 12/20/16 14:43 76 14 107/67 100 Room Air 12/20/16 13:15 111/71 126/76 12/20/16 13:10 15 100 Room Air 12/20/16 11:44 98.4 84 14 113/81 100 Physical Exam GENERAL: Well-nourished, well-developed female patient lying in bed in no apparent distress. SKIN: No rashes, ecchymoses or lesions. Warm and dry. HEAD: Atraumatic. Normocephalic. No temporal or scalp tenderness. Pupils equal round and reactive to light and accommodation. Extraocular motions intact. No scleral icterus. No injection or drainage. Nose without bleeding. Airway patent. Tongue is midline NECK: Trachea midline. No JVD. Supple. No thyromegaly CARDIOVASCULAR: Regular rate and rhythm. No murmur appreciated. S1 and S2 present, no S3 or S4. No rubs or gallops. RESPIRATORY: Clear to auscultation. Breath sounds equal bilaterally. No wheezes , rales, or rhonchi. GASTROINTESTINAL: Abdomen soft, non-tender, nondistended. No guarding. No rebound or rigidity MUSCULOSKELETAL: Extremities without clubbing, cyanosis, or edema. No joint tenderness, effusion, or edema noted. Good pedal pulses bilaterally. Moves all 4 extremities. NEUROLOGICAL: Awake and alert. Cranial nerves II through XII intact. Motor and sensory grossly within normal limits. Five out of 5 muscle strength in all muscle groups. Normal speech. Insight and judgment are good mood and behavior appropriate is somewhat anxious possibly secondary to recent diagnosis of a NH Laboratory Laboratory Tests Test 12/20/16 12/20/16 12/20/16 12:30 13:40 15:30 White Blood Count 7.9 Red Blood Count 4.69 Hemoglobin 13.2 Hematocrit 40.2 Mean Corpuscular Volume 85.6 Mean Corpuscular Hemoglobin 28.2 Mean Corpuscular Hemoglobin 32.9 Concent Red Cell Distribution Width 13.3 Platelet Count 372 Mean Platelet Volume 7.5 Neutrophils (%) (Auto) 73.7 Lymphocytes (%) (Auto) 18.9 Monocytes (%) (Auto) 5.4 Eosinophils (%) (Auto) 1.7 Basophils (%) (Auto) 0.3 Neutrophils # (Auto) 5.9 Lymphocytes # (Auto) 1.5 Monocytes # (Auto) 0.4 Eosinophils # (Auto) 0.1 Basophils # (Auto) 0.0 CBC Comment DIFF FINAL Differential Comment Prothrombin Time 11.2 Prothromb Time International 1.0 Ratio Activated Partial 22.8 Thromboplast Time Sodium Level 137 Potassium Level 3.6 Chloride Level 99 Carbon Dioxide Level 28.2 Anion Gap 10 Blood Urea Nitrogen 10 Creatinine 0.76 Estimat Glomerular Filtration 105 Rate Random Glucose 194 Calcium Level 9.2 Magnesium Level 1.5 Total Bilirubin 1.0 Aspartate Amino Transf 29 (AST/SGOT) Alanine Aminotransferase 44 (ALT/SGPT) Alkaline Phosphatase 139 Total Creatine Kinase 120 Creatine Kinase MB 0.9 Troponin I LESS THAN 0.02 LESS THAN 0.02 Total Protein 8.3 Albumin 3.8 Lipase 94 Urine Color YELLOW Urine Turbidity HAZY Urine pH 6.0 Urine Specific [place] 1.031 Urine Protein 30 Urine Glucose (UA) TRACE Urine Ketones 10 Urine Occult Blood NEG Urine Nitrite NEG Urine Bilirubin NEG Urine Urobilinogen 8.0 Urine Leukocyte Esterase NEG Urine RBC 1 Urine WBC 9 Urine Squamous Epithelial 7 Cells Urine Bacteria OCC Urine Hyaline Casts 34 Urine Mucus MANY Microscopic Urinalysis Comment CULTURE INDICATED Lactic Acid Level 1.1 Date/Time Procedure Status Source Growth 12/20/16 13:40 Urine Culture Received Urine Clean Catch Pending Result Diagram: 12/20/16 1230 12/20/16 1230 Imaging Last Impressions Chest X-Ray 12/20/16 1305 Signed Impressions: Service Date/Time: Tuesday, December 20, 2016 13:08 - CONCLUSION: No evidence of acute cardiopulmonary disease. Chris Gordon MD Assessment and Plan Problem List: (1) Anxiety ICD Code: F41.9 Status: Acute (2) STEMI (ST elevation myocardial infarction) ICD Code: I21.3 Status: Acute (3) UTI (urinary tract infection) ICD Code: N39.0 Status: Acute (4) Nausea & vomiting ICD Code: R11.2 Status: Acute (5) Hypertension ICD Code: I10 Status: Chronic (6) Type 2 diabetes mellitus ICD Code: E11.9 Status: Chronic (7) Abdominal pain ICD Code: R10.9 Status: Acute Assessment and Plan Ms. Restrepo is a 36-year-old female patient with a known medical history of recent NH in October 2016, diabetes and hypertension who presented to the ED with complaints of loss of appetite, nausea and vomiting for one week. Patient states that she has not been able to tolerate anything PO without associated nausea and vomiting for the past week. UA positive for infection. Urine culture pending. Afebrile. WBC WNL. CXR negative. Recent NH in October 2016, EKG SR, no arrhythmias. Troponin negative. Coronary artery disease History of NH and stent placement Atypical chest pain - Trend troponins and CPK. All negative at this time. - Continue home Brilinta and aspirin. Continue carvedilol 12.5 mg PO BID. - Continue cardiac telemetry. EKG reviewed showing SR, no arrhythmias. - Consult placed to cardiology, patient known to Dr. So. Appreciate recommendations. - Supplemental O2 as needed. Urinary tract infection Abdominal pain with associated nausea and vomiting suspect secondary to above - Symptoms have currently resolved. - Will start Rocephin 1 g IV q12 hr. Urine culture pending. Follow. - Zofran available PRN. - Lactinex 3 times a day Type 2 diabetes mellitus - ACCU checks ACHS. Place on sliding scale, cover as needed. Start on Metformin 850 mg PO TID. Levemir 25 units sq HS. - Hemoglobin a1C ordered and pending. Follow. - Start on Atorvastatin 40 mg PO HS. - Keep on 1800 ADA diet. - certified adapted physical educator and psychiatric registered nurse consulted for further education and assistance, appreciate input. Hypertension: Continue home Lisinopril. Monitor BP closely. Controlled at this time. Hyperlipidemia: Start on atorvastatin 40 mg by mouth daily at bedtime for plaque stabilization and for treatment of recent NH Anxiety: Reassurance. Clonazepam 0.5 mg PO q8hr PRN. Anxiety Insomnia: Zolpidem 5 mg PO HS available PRN DVT Prophylaxis: SCDs/Lovenox 40 mg sq q24hr. Lactinex 3 times a day The exam, history, and the medical decision-making described in the above note were completed with the assistance of the mid-level provider. I reviewed and agree with the findings presented. I attest that I had a [id number] encounter with the patient on the same day, and personally performed and documented my assessment and findings in the medical record. Code Status Full code Discussed Condition With Nurse practitioner as well as emergency room physicia, the patient and her mother. Problem Qualifiers (1) UTI (urinary tract infection): Qualified Code: N30.00 - Acute cystitis without hematuria Coretta Mitchell Dec 20, 2016 17:58 Atul Waldron DO Dec 20, 2016 18:29
[2016-12-20] MEDS ORDERED: metFORMIN HCL 850 MG TAB PO SCH (18:00)
[2016-12-20] MEDS ORDERED: ENOXAPARIN SODIUM 40 MG/0.4 ML SYRINGE SQ SCH (19:00)
[2016-12-20] MEDS: INSULIN ASPART SUPPLEMENTAL SCALE SQ SCH (21:00)
[2016-12-20] MEDS ORDERED: ATORVASTATIN 40 MG TAB PO SCH (21:00)
[2016-12-20] MEDS ORDERED: INSULIN DETEMIR 100 UNITS/ML VIAL SQ SCH (21:00)
[2016-12-20] MEDS: TICAGRELOR 90 MG TAB PO SCH (21:03)
[2016-12-20] MEDS: DOCUSATE SODIUM 50 MG/SENNA 8.6 MG TAB PO SCH (21:04)
[2016-12-20] MEDS: CARVEDILOL 12.5 MG TAB PO SCH (21:04)
[2016-12-20] MEDS: LISINOPRIL 10 MG TAB PO SCH (21:05)
[2016-12-20] MEDS: SODIUM CHLORIDE 0.9% FLUSH 10 ML FLUSH IV FLUSH SCH (21:05)
[2016-12-20] MEDS: cefTRIAXone INJ 1,000 MG in SODIUM CHLORIDE 0.9% INJ 100 ML IV SCH (21:06)
[2016-12-20 22:53] LABS: CREATINE KINASE 101 U/L (26-192)
[2016-12-21 01:43] VITALS: PULSE 79
[2016-12-21 04:23] LABS: AUTOMATED NEUTROPHIL # 3.5 TH/MM3 (1.8-7.7); BASOPHIL # 0.1 TH/MM3 (0-0.2); BASOPHIL % 0.9 % (0.0-2.0); EOSINOPHIL # 0.2 TH/MM3 (0-0.4); EOSINOPHIL % 2.7 % (0.0-4.0); HEMATOCRIT 36.1 % (35.0-46.0); HEMO FLAGS DIFF FINAL; LYMPH % 34.9 % (9.0-44.0); LYMPHOCYTE # 2.3 TH/MM3 (1.0-4.8); MEAN CORPUSCULAR HEMOGLOBIN 28.2 PG (27.0-34.0); MEAN CORPUSCULAR HGB CONC 32.7 % (32.0-36.0); NEUT % 54.5 % (16.0-70.0); PLATELET COUNT 341 TH/MM3 (150-450); RED BLOOD COUNT 4.19 MIL/MM3 (4.00-5.30); RED CELL DISTRIBUTION WIDTH 13.1 % (11.6-17.2); WHITE BLOOD COUNT 6.5 TH/MM3 (4.0-11.0)
[2016-12-21 05:00] LABS: ALKALINE PHOSPHATASE 119 U/L (45-117); ALT (GPT) 38 U/L (10-53); ANION GAP 9 MEQ/L (5-15); AST (GOT) 27 U/L (15-37); BICARBONATE 24.9 MEQ/L (21.0-32.0); BLOOD UREA NITROGEN 10 MG/DL (7-18); CHLORIDE 103 MEQ/L (98-107); CREATINE KINASE 110 U/L (26-192); GLOMERULAR FILTRATION RATE 136 ML/MIN (>89); MAGNESIUM 1.4 MG/DL (1.5-2.5); POTASSIUM 3.3 MEQ/L (3.5-5.1); SODIUM (NA) 137 MEQ/L (136-145); TOTAL BILIRUBIN ADULT 0.7 MG/DL (0.2-1.0)
[2016-12-21 05:19] VITALS: BP 103/65; PULSE 74; RESP 21; TEMP 98.7; O2SAT 100
[2016-12-21] MEDS: cefTRIAXone INJ 1,000 MG in SODIUM CHLORIDE 0.9% INJ 100 ML IV SCH (06:26)
[2016-12-21] MEDS: INSULIN ASPART SUPPLEMENTAL SCALE SQ SCH ×2 (06:30→13:49)
[2016-12-21 07:57] VITALS: BP 106/69; PULSE 78; RESP 18; TEMP 97.2; O2SAT 99
[2016-12-21] MEDS ORDERED: POTASSIUM CHLORIDE 20 MEQ CONTROLLED RELEASE TAB PO ONE (08:15)
[2016-12-21] MEDS: MAGNESIUM SULFATE 1 GM PREMIX 100 ML IV SCH ×2 (08:56→10:30)
[2016-12-21] MEDS: LACTOBACILLUS ACIDOPHILUS TAB PO SCH ×2 (08:57→13:50)
[2016-12-21] MEDS: TICAGRELOR 90 MG TAB PO SCH (08:58)
[2016-12-21] MEDS: SODIUM CHLORIDE 0.9% FLUSH 10 ML FLUSH IV FLUSH SCH (08:58)
[2016-12-21] MEDS: DOCUSATE SODIUM 50 MG/SENNA 8.6 MG TAB PO SCH (08:58)
[2016-12-21] MEDS: LISINOPRIL 10 MG TAB PO SCH (09:00)
[2016-12-21] MEDS ORDERED: ASPIRIN 81 MG CHEW TAB PO SCH (09:00)
[2016-12-21] MEDS: CARVEDILOL 12.5 MG TAB PO SCH (09:01)
[2016-12-21 09:40] VITALS: PULSE 65
--- NOTE | 2016-12-21 11:22 | HHI.PR ---
Subjective Remarks Follow-up for nausea, vomiting, and chest pain. The patient had been having intractable nausea and vomiting 1 week. She had also been having lower abdominal discomfort. Denies any diarrhea or dysuria. She states that yesterday she began having chest pressure and left arm stiffness which resolved prior to admission. She denies any recurrence of chest pain overnight. She states that the abdominal pain and nausea have resolved. She would like to try to eat. She states that she was recently started on insulin and if of course the medications started on after her catheterization and stent placement. She is hoping to go home soon. Objective Vitals Vital Signs Date Time Temp Pulse Resp B/P Pulse Ox O2 Delivery O2 Flow Rate FiO2 12/21/16 09:40 65 12/21/16 07:57 97.2 78 18 106/69 99 12/21/16 05:19 98.7 74 21 103/65 100 12/21/16 01:43 79 12/20/16 23:48 98.7 90 18 132/64 97 12/20/16 19:37 97.8 79 18 126/78 100 12/20/16 19:30 99 12/20/16 17:46 79 15 112/68 99 Room Air 12/20/16 16:25 82 16 114/77 100 Room Air 12/20/16 14:43 76 14 107/67 100 Room Air 12/20/16 13:15 111/71 126/76 12/20/16 13:10 15 100 Room Air 12/20/16 11:44 98.4 84 14 113/81 100 I/O 12/20/16 12/20/16 12/20/16 12/21/16 12/21/16 12/21/16 07:00 15:00 23:00 07:00 15:00 23:00 Intake Total 300 ml Balance 300 ml Intake Oral 300 ml Result Diagram: 12/21/16 0409 12/21/16 0409 Imaging Last Impressions Chest X-Ray 12/20/16 1305 Signed Impressions: Service Date/Time: Tuesday, December 20, 2016 13:08 - CONCLUSION: No evidence of acute cardiopulmonary disease. Chris Gordon MD Objective Remarks GENERAL: Well-developed well-nourished. In no acute distress. SKIN: Warm and dry. No lesions noted. HEENT: Normocephalic. Pupils equal and round. Mucous membranes pink and moist. CARDIOVASCULAR: Regular rate and rhythm. No murmur appreciated. RESPIRATORY: No accessory muscle use. Clear to auscultation. Breath sounds equal bilaterally. GASTROINTESTINAL: Abdomen soft, non-tender, nondistended. Bowel sounds x4. MUSCULOSKELETAL: No obvious deformities. No clubbing or cyanosis. No edema. NEUROLOGICAL: Awake and alert. No focal neurological deficits. Moves upper and lower extremities spontaneously. Normal speech. PSYCHIATRIC: Appropriate mood and affect; insight and judgment normal. A/P Problem List: (1) Anxiety ICD Code: F41.9 Status: Chronic (2) UTI (urinary tract infection) ICD Code: N39.0 Status: Acute (3) Nausea & vomiting ICD Code: R11.2 Status: Resolved (4) Hypertension ICD Code: I10 Status: Chronic (5) Type 2 diabetes mellitus ICD Code: E11.9 Status: Chronic (6) Abdominal pain ICD Code: R10.9 Status: Resolved (7) Chest pain ICD Code: R07.9 Status: Resolved Assessment and Plan Ms. Restrepo is a 36-year-old female patient with a known medical history of recent [place] in October 2016, diabetes and hypertension who presented to the ED with complaints of loss of appetite, nausea and vomiting for one week Coronary artery disease History of [place] and stent placement Atypical chest pain - ACS ruled out per protocol with unremarkable serial cardiac enzymes and EKGs - Continue home Brilinta and aspirin. Continue carvedilol 12.5 mg PO BID. - Continue cardiac telemetry. EKG reviewed with anterior and inferior T-wave inversions, no significant change from previous. - Consult placed to cardiology, patient known to Dr. So. Appreciate recommendations. Urinary tract infection Abdominal pain with associated nausea and vomiting suspect secondary to above - Symptoms have currently resolved. - Continue IV Rocephin. Urine culture pending. Follow. - Zofran available PRN. - Lactinex 3 times a day - Diet as tolerated Type 2 diabetes mellitus - ACCU checks ACHS. Place on sliding scale, cover as needed. - Continue home metformin and Levemir. - Keep on 1800 ADA diet. - certified lactation educator and telemetry registered nurse consulted for further education and assistance, appreciate input. Hypertension: Continue home Lisinopril. Monitor BP. Controlled at this time. Hyperlipidemia: Start on statin Anxiety/insomnia: Continue home Klonopin and Ambien DVT Prophylaxis: SCDs/Lovenox 40 mg sq q24hr. Discharge Planning Advance diet as tolerated. Follow cardiology recommendations. If the patient is tolerating oral intake and cleared from cardiology perspective, discharge planning. [address] So, nothing additional to add from cardiology perspective, clear for DC. Discussed with RN, patient tolerating diet with no issues. Urine culture preliminarily with no growth, continue on Macrobid. Discharge home today. Problem Qualifiers (1) UTI (urinary tract infection): Qualified Code: N30.00 - Acute cystitis without hematuria (2) Hypertension: Qualified Code: I10 - Essential hypertension (3) Chest pain: Qualified Code: R07.9 - Chest pain, unspecified type Miquel Wyatt Dec 21, 2016 11:22
[2016-12-21 12:11] VITALS: BP 118/74; PULSE 72; RESP 18; TEMP 97.6; O2SAT 100
[2016-12-21] MEDS ORDERED: MACR100C2 PO (15:30)
[2016-12-21] MEDS ORDERED: ATOR40TA16 PO (15:30)
--- NOTE | 2016-12-21 15:39 | EKG ---
Date Performed: 12/20/2016 Time Performed: 12:33:51 PTAGE: 36 years EKG: Sinus rhythm MODERATE T-WAVE ABNORMALITY, CONSIDER ANTEROLATERAL ISCHEMIA MODERATE T-WAVE ABNORMALITY, CONSIDER I NFERIOR ISCHEMIA ABNORMAL ECG PREVIOUS TRACING 10/30/2016 06.35.02 Since previous tracing, no significant change noted DOCTOR: Royal Raza Interpretating Date/Time 12/21/2016 15:38:41
--- NOTE | 2016-12-21 15:40 | EKG ---
Date Performed: 12/20/2016 Time Performed: 18:28:32 PTAGE: 36 years EKG: Sinus rhythm MODERATE VOLTAGE CRITERIA FOR LVH, CONSIDER NORMAL VARIANT NONSPECIFIC T-WAVE ABNORMALITY CONSIDER I NFERIOR ISCHEMIA BORDERLINE ECG PREVIOUS TRACING 12/20/2016 15.33.39 DOCTOR: Royal Raza Interpretating Date/Time 12/21/2016 15:39:27
--- NOTE | 2016-12-21 15:40 | EKG ---
Date Performed: 12/20/2016 Time Performed: 15:33:39 PTAGE: 36 years EKG: Sinus rhythm MODERATE T-WAVE ABNORMALITY, CONSIDER ANTERIOR ISCHEMIA MODERATE T-WAVE ABNORMALITY, CONSIDER INFERI OR ISCHEMIA ABNORMAL ECG PREVIOUS TRACING : 10/30/2016 06.35 Since previous tracing, no significant change noted DOCTOR: Royal Raza Interpretating Date/Time 12/21/2016 15:38:49
[2016-12-21 16:16] VITALS: BP 126/84; PULSE 89; RESP 18; TEMP 96.4; O2SAT 100
--- NOTE | 2016-12-21 22:25 | MB ---
cc: LUCINDA RUFFIN DATE OF CONSULTATION 12/21/2016 HISTORY Ms. Restrepo is a 36-year-old white female with a history of inferior wall myocardial function and stenting of the right coronary in October of 2016. She presented with nausea, vomiting, poor appetite for the last week. She has not been able to eat, was dehydrated, but has been able to keep at least her medications down. She has not had any angina or dyspnea with exertion. She has had dizziness and lightheadedness. PAST MEDICAL HISTORY Positive for: 1. Hypertension. 2. Diabetes mellitus. 3. Inferior wall myocardial function in October with stenting of the right coronary artery. 4. Dyslipidemia. 5. . MEDICATIONS 1. Brilinta. 2. Baby aspirin. 3. Carvedilol 6.25 milligrams twice a day. 4. Macrobid. ALLERGIES None. SOCIAL HISTORY The patient does not smoke. She does not drink alcohol. FAMILY HISTORY Positive for heart disease. REVIEW OF SYSTEMS Otherwise negative. PHYSICAL EXAMINATION VITAL SIGNS: Blood pressure in 118/74, pulse 72 and regular. HEENT: Negative. NECK: 2+ carotid upstrokes. No bruits. LUNGS: Clear. HEART: Regular with no murmur, gallop or rub. ABDOMEN: Soft. No bruits. EXTREMITIES: Without edema. 2+ distal pulses. NEUROLOGIC: Examination grossly intact. EKG was reviewed and showed normal sinus rhythm and inferolateral ST-T changes which were unchanged on serial EKGs. LABORATORY DATA Hemoglobin 11.8. Potassium 3.3, creatinine 0.6. Troponin negative times four. CK 101 and 110. DIAGNOSES 1. Urinary tract infection. 2. Coronary artery disease, history of inferior myocardial infarction and coronary stenting. 3. Hypertension. 4. Diabetes mellitus. 5. Dyslipidemia. DISPOSITION Ms. Restrepo will consider current medical program including therapy with antibiotics for UTI. I stressed the importance of continuing her current cardiac medications including Brilinta and baby aspirin. She has been ruled out for myocardial infarction by enzymes. There is no evidence of acute coronary syndrome. She can be discharged home from cardiac standpoint. I will see her back for followup in our office in the near future as scheduled. MD MARCOS Bazzi/REINALDO /4:15 PM /10:08 PM
[2016-12-22] MEDS ORDERED: cefTRIAXone INJ 1,000 MG in SODIUM CHLORIDE 0.9% INJ 100 ML IV SCH (07:00)
== END 2016-12-21 17:28 | disposition home or self-care (01) ==
LOC: NEPE 11:42 → NEDA 17:04 → NEPHCDU 19:07
PROVIDERS: ADMIT Hospitalist; ATTEND Hospitalist
DX: F41.9 Anxiety disorder, unspecified (principal); I21.3 ST elevation (STEMI) myocardial infarction of unspecified site; N30.00 Acute cystitis without hematuria; R10.13 Epigastric pain; E86.0 Dehydration; R42 Dizziness and giddiness; R11.2 Nausea with vomiting, unspecified; R63.0 Anorexia; R53.1 Weakness; R07.9 Chest pain, unspecified; R06.02 Shortness of breath; R20.0 Anesthesia of skin; R10.11 Right upper quadrant pain; M79.602 Pain in left arm; R94.31 Abnormal electrocardiogram [ECG] [EKG]; I25.10 Atherosclerotic heart disease of native coronary artery without angina pectoris; I10 Essential (primary) hypertension; E11.9 Type 2 diabetes mellitus without complications; E78.5 Hyperlipidemia, unspecified; G47.00 Insomnia, unspecified; Z98.84 Bariatric surgery status; Z95.5 Presence of coronary angioplasty implant and graft; Z79.82 Long term (current) use of aspirin; Z79.899 Other long term (current) drug therapy; Z79.84 Long term (current) use of oral hypoglycemic drugs
CPT/HCPCS: 71010; 80053; 81001; 82550; 82552; 82948; 83605; 83690; 83735; 84100; 84484; 84703; 85025; 85610; 85730; 87086; 93005; 96365; 96366; 96372; 99285; G0378; J0696; J1650; J1815; J3475